=== PATIENT | male | born 1955 | race Caucasian/White ===

== ENCOUNTER 2020-11-20 08:39 | Inpatient (IN) | payer OTHER, SELFPAY ==
[2020-11-20] VITALS (14 sets, daily range): BP systolic 70–158; BP diastolic 40–75; PULSE 56–868; RESP 16–22; TEMP 38.8–40.3; O2SAT 93–99; BMI 33.2
--- NOTE | ~2020-11-20 | CT_ITS ---
EXAMINATION: CT HEAD WITHOUT CONTRAST CLINICAL INFORMATION: Fall. Head trauma. COMPARISON: None TECHNIQUE: Contiguous axial imaging was performed from the skull base to vertex without intravenous administration of contrast. This CT examination was performed using dose optimization techniques as appropriate, variously including the following: *Automated exposure control *Adjustment of mA and/or kV according to patient size (this includes techniques or standardized protocols for targeted exams where dose is matched to indication/reason for exam; i.e. extremities or head) *Use of iterative reconstruction technique DLP: 851 mGy-cm FINDINGS: There is no evidence of acute intracranial hemorrhage or territorial infarction. No abnormal mass effect or midline shift is seen. Torres to white matter differentiation is well preserved. No extra-axial fluid collections are identified. The ventricles are normal in size. There is no abnormal attenuation within the brain parenchyma. The osseous structures and soft tissues are normal. The mastoid air cells and visualized portions of the paranasal sinuses are well aerated. CT/CT head/brain wo con IMPRESSION: Unremarkable exam.
--- NOTE | ~2020-11-20 | XR_ITS ---
EXAMINATION: XR CHEST CLINICAL INFORMATION: Central line placement COMPARISON: CTA chest earlier the same day TECHNIQUE: Frontal view of the chest was obtained. FINDINGS: Low lung volumes. Mild atelectasis particularly at the left lung base. No pleural effusion or pneumothorax. New right internal jugular approach central venous catheter with tip near the cavoatrial junction. Normal heart size. Regional skeleton intact. XR/XR chest 1V IMPRESSION: New right internal jugular approach central venous catheter with tip near the cavoatrial junction. No pneumothorax.
--- NOTE | ~2020-11-20 | CT_ITS ---
EXAMINATION: CT ANGIO CHEST PE PROTOCOL, CT ABDOMEN PELVIS W CON CLINICAL INFORMATION: Shortness of breath, fever, wheezing. Abdominal pain TECHNIQUE: Prior to contrast administration, noncontrast localization images were obtained. Subsequently, multidetector volumetric imaging was performed from the thoracic inlet to the pubic symphysis, through the chest, abdomen, and pelvis following the administration of 80 mL Omnipaque 350 intravenous contrast. No contrast reaction reported Sagittal, coronal, and MIP oblique sagittal reformatted images were obtained on the CT workstation, uploaded to PACS, and reviewed. Total exam dose-length product 654 mGy-cm FINDINGS: QUALITY OF STUDY/CONTRAST BOLUS: Satisfactory. PULMONARY ARTERIES: No central or segmental pulmonary emboli. THORACIC AORTA: No aneurysm or dissection. LUNG: Clustered nodular opacities are seen laterally in the right upper lobe image 190/499. The appearance suggests an infectious or inflammatory process. Patchy atelectasis is seen elsewhere. There is bilateral bronchial wall thickening. Mild dependent lower lobe atelectasis. PLEURA: No pleural effusion or pneumothorax. MEDIASTINUM: Normal heart size. No pericardial effusion. No hilar or mediastinal lymphadenopathy. No evidence of septal bowing or right heart strain. CHEST WALL/AXILLA: No axillary or internal mammary lymphadenopathy. OSSEOUS STRUCTURES: No acute or suspicious osseous abnormality. LIVER, GALLBLADDER, AND BILIARY TREE: The liver is normal in size, shape, and attenuation. No focal hepatic lesion or biliary ductal dilatation is present. There is layering density in the gallbladder likely tiny stones or sludge. No biliary ductal dilatation. PANCREAS: Normal; no mass or surrounding fluid. SPLEEN: Normal size. No focal lesion. ADRENAL GLANDS: Normal; no mass. KIDNEYS AND URETERS: There is subtle hypoenhancement of the posterior aspect of the left kidney. Although this could be artifactual because the patient is not well centered in the CT scanner, pyelonephritis is possible. No hydronephrosis. GASTROINTESTINAL TRACT: Stomach and small bowel non-dilated. No colonic wall thickening or pericolonic inflammatory changes. Normal appendix. ABDOMINAL WALL: Midline laparotomy changes. There is a small amount of fat in both inguinal canals, left greater than right.. LYMPHOVASCULAR STRUCTURES: No lymphadenopathy. The aorta is unremarkable. BLADDER: The bladder is significantly distended. No calculi or focal wall thickening. PELVIC VISCERA: The prostate and seminal vesicles are normal. OSSEOUS STRUCTURES: No acute or suspicious osseous abnormality. CT/CT angio chest PE protocol IMPRESSION: No pulmonary embolus seen. There is bronchial wall thickening with clustered nodules in the lateral periphery of the right upper lobe suggesting underlying infectious or inflammatory process. No dense focal consolidation. This is not the typical appearance of viral COVID pneumonitis. There is asymmetric hypoenhancement of the posterior aspect of the left kidney. Although this could be artifactual due to patient positioning, pyelonephritis is possible. Consider correlation with urinalysis.
--- NOTE | ~2020-11-20 | XR_ITS ---
EXAMINATION: XR CHEST CLINICAL INFORMATION: Shortness of breath COMPARISON: Previous chest x-ray most recent September 2017 TECHNIQUE: Frontal view of the chest was obtained. FINDINGS: The cardiac and mediastinal contours are normal. The lungs are clear. There is no pleural effusion or pneumothorax. There are degenerative changes of the spine. XR/XR chest 1V IMPRESSION: No evidence for acute disease in the chest.
--- NOTE | 2020-11-20 08:50 | ECG_ITS ---
Test Reason : HIGH TEMP Blood Pressure : / mmHG Vent. Rate : 074 BPM Atrial Rate : 074 BPM P-R Int : 202 ms QRS Dur : 112 ms QT Int : 420 ms P-R-T Axes : 050 000 119 degrees QTc Int : 466 ms Normal sinus rhythm ST & T wave abnormality, consider lateral ischemia Abnormal ECG When compared with ECG of 20-AUG-2016 10:38, No significant change was found Referred By: Brianna Akbar Electronically Signed By:MONTSERRAT KIRKPATRICK MD
--- NOTE | 2020-11-20 09:16 | MHC.EDSEPSIS ---
HPI - Sepsis General Chief Complaint: Fever <MARCOS Cerda Last Filed: 11/20/20 16:47> Stated Complaint: DIFF BREATHING (94%RA),FEVER (102) <MARCOS Cerda Last Filed: 11/20/20 16:47> Time Seen by Provider: 11/20/20 08:49 <MARCOS Cerda Last Filed: 11/20/20 16:47> Source: patient and EMS <MARCOS Cerda Last Filed: 11/20/20 16:47> Mode of arrival: EMS <MARCOS Cerda Last Filed: 11/20/20 16:47> Limitations: language barrier <MARCOS Cerda Last Filed: 11/20/20 16:47> History of Present Illness HPI Narrative: 65 y/o male with history of HTN, HLD, DM, lung problems who presents to the ED with complaints of fever, shortness of breath and cough. He reports being seen by his PCP 3 days ago - had a negative COVID test and was started on steroids and ?antibiotics. No CXR was performed. He reports last night he started coughing. He reports when he went to get up out of bed this morning and rolled out of bed onto the floor. He reports dizziness at that time. He hit head head but did not lose consciousness. Denies being on blood thinners. Denies headache or neck pain. He reports generalized abdominal pain since the fall. No nausea, vomiting, or diarrhea. He reportedly had a fever of 102 at home and family gave him medicine. He arrives to the ED with oral temp of 98.4 but felt very warm; rectal temp was checked and he was febrile to 104.5. No tachycardia. <MARCOS Cerda Last Filed: 11/20/20 16:47> MD elicited complaint: fever, weakness and other (cough, SOB) <MARCOS Cerda Last Filed: 11/20/20 16:47> Pertinent past history: diabetes <MARCOS Cerda Last Filed: 11/20/20 16:47> Onset (ago): day(s) (3) <MARCOS Cerda Last Filed: 11/20/20 16:47> Measured temperature: 104.5 F <MARCOS Cerda Last Filed: 11/20/20 16:47> Exacerbating factors: nothing <MARCOS Cerda Last Filed: 11/20/20 16:47> Relieving factors: nothing <MARCOS Cerda Last Filed: 11/20/20 16:47> Associated symptoms: denies other symptoms, cough, shortness of breath and abdominal pain <MARCOS Cerda Last Filed: 11/20/20 16:47> Treatments prior to arrival fever: none <MARCOS Cerda Last Filed: 11/20/20 16:47> Related Data Home Medications: Home Medications Medication Instructions Recorded Confirmed albuterol sulfate 2.5 mg INHALATION Q4H PRN 11/20/20 11/20/20 aspirin 81 mg PO DAILY 11/20/20 11/20/20 atorvastatin 80 mg PO DAILY 11/20/20 11/20/20 gabapentin 800 mg PO TID 11/20/20 11/20/20 hydrochlorothiazide 25 mg PO DAILY 11/20/20 11/20/20 insulin glargine [Lantus U-100 60 unit SUBCUT BEDTIME 11/20/20 11/20/20 Insulin] losartan 100 mg PO DAILY 11/20/20 11/20/20 prednisone See Rx Instructions .ROUTE .COMPLEX 11/20/20 11/20/20 tamsulosin 0.4 mg PO DAILY 11/20/20 11/20/20 <MARCOS Cerda Last Filed: 11/20/20 16:47> Allergies/Adverse Reactions: Allergies Allergy/AdvReac Type Severity Reaction Status Date / Time No Known Allergies Allergy Mild NONE Unverified 06/15/20 14:38 <MARCOS Cerda Last Filed: 11/20/20 16:47> Review of Systems Review of Systems Constitutional: + Fever, No Chills ENT/Mouth: No sore throat, No Rhinorrhea, No Swallowing Difficulty Eyes: No Eye Pain, No Swelling, No Redness Cardiovascular: No Chest Pain, + SOB, No Orthopnea, No Edema Respiratory: + Cough, No Sputum, + Wheezing, + dyspnea Gastrointestinal: No Nausea, No Vomiting, No Diarrhea, + abdominal Pain, No Hematochezia, No Melena Genitourinary: No Dysuria, No Urinary Frequency, No Hematuria Musculoskeletal: No joint pain, No Myalgias Skin: No Skin Lesions, No rash Neuro: + Weakness, No Numbness, + Dizziness, No Headache Psych: No Anxiety/Panic, No Depression Heme/Lymph: No Bruising, No Lymphadenopathy Endocrine: No Polyuria, No Polydipsia <MARCOS Cerda - Last Filed: 11/20/20 16:47> Physical Exam Vital Signs: Last Vital Signs Temp 98.5 F 11/21/20 08:00 Pulse 65 11/21/20 08:00 Resp 20 11/21/20 08:00 BP 152/75 H 11/21/20 08:00 Pulse Ox 98 11/21/20 08:00 Body Mass Index 33.2 Appearance: Alert. Oriented X3. No acute distress. Eyes: Pupils equal, round and reactive to light. ENT: Pharynx normal. Neck: Normal inspection. Neck supple. +jvd CVS: Normal heart rate and rhythm. Pulses normal. Respiratory: No respiratory distress. Breath sounds with very faint end-expiratry wheeze in RUL & diminished at the bases. Abdomen: Soft with well healed longitudinal scar on right side of abdomen and linear above umbilicus, non-tender throughout. +BS x4 Skin: Skin very warm and dry. Normal skin color. Normal skin turgor. No rashes. Extremities: No lower extremity edema. Neuro: Oriented X 3, poor historian. Mild generalized weakness noted, non-focal. <MARCOS Cerda - Last Filed: 11/20/20 16:47> Last Vital Signs Temp 98.5 F 11/21/20 08:00 Pulse 65 11/21/20 08:00 Resp 20 11/21/20 08:00 BP 152/75 H 11/21/20 08:00 Pulse Ox 98 11/21/20 08:00 Body Mass Index 33.2 <Aly Ferguson MD - Last Filed: 11/21/20 10:15> Course Course Course Narrative: 65 y/o male presenting with fever, SOB, cough, dizziness, abdominal pain, s/p fall out of bed this morning. 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 No wheezing on arrival, no respiratory distress and SpO2 95% on RA. He is febrile to 104.5 rectally and hemodynamically stable. History is very limited. Given his diffuse and vague complaints and history of DM will broadly cover with vanco/zosyn, give 2L IVF. He does have JVD on exam and reports SOB so will be cautious with IVF. He has no peripheral edema. BNP ordered as well. Panculture ordered. Mental status is at baseline per family and he denies headache and neck pain. No need for LP at this time. d/w Dr. Ferguson. <MARCOS Cerda - Last Filed: 11/20/20 16:47> I have discussed the case and management with the KALEN, patient with septic like symptoms with no source. covered with zosyn and Vanco and is admitted <Aly Ferguson MD - Last Filed: 11/21/20 10:15> Reevaluation(s) Reevaluation #1: CXR without obvious infiltrate. WBC 14.8 with low lymphcytes, concern for COVID-19 which is pending. Temp remains >104 after Tylenol and 2L IVF. 3rd liter IVF ordered as well as Toradol. Plan for cooling blanket if no effect. Will get CT chest/abd/pelvis for further evaluation of source of fever. <MARCOS Cerda - Last Filed: 11/20/20 16:47> Reevaluation #2: 14:30pm - newly hypotensive with BP 70's systolic, 4th liter ordered. Consent obtained for central line placement. CT scan showed bronchial wall thickening with clustered nodules in the lateral periphery of the right upper lobe suggesting underlying infectious or inflammatory process also evidence of possible pyelonephritis, UA still pending. Focused sepsis exam completed after 3L IVF was given. <MARCOS Cerda - Last Filed: 11/20/20 16:47> Reevaluation #3: 16:00 - patient's BP is now stabilized with BP 90/50s and MAP >65 after 4L IVF. UA is negative for infection, doubt pyelo. 16:25: BP now 120/59 but continues to be febrile to 102.9. Due to repeat dose of Tylenol. He is now wheezy after 4L IVF. His recent CXR did not show pulmonary edema. BNP is normal. Doubt fluid related. He was wheezy for EMS with significant improvement after nebs x2, will give albuterol neb and reassess. Patient can likely be admitted to [facility]. TT sent to [facility] at 4:30pm. Spoke with [facility] who will admit. <MARCOS Cerda - Last Filed: 11/20/20 16:47> Procedures Central Line Placement Right IJ: Time Out Performed: Yes <MARCOS Cerda - Last Filed: 11/20/20 16:47> Patient Placed on Monitor/Pulse Ox: Yes <MARCOS Cerda - Last Filed: 11/20/20 16:47> MD Prep: mask, gown and gloves <MARCOS Cerda - Last Filed: 11/20/20 16:47> Central Line Prep: Chlorhexidine scrub and sterile drapes applied <MARCOS Cerda - Last Filed: 11/20/20 16:47> Local Anesthetic: lidocaine 1% <MARCOS Cerda - Last Filed: 11/20/20 16:47> Amount of anesthesia used (mL): 4 <MARCOS Cerda - Last Filed: 11/20/20 16:47> Ultrasound Used for Placement: Yes <MARCOS Cerda - Last Filed: 11/20/20 16:47> Central Line Lumen Inserted: triple <MARCOS Cerda - Last Filed: 11/20/20 16:47> Post Procedure: sutured in place, good blood return, all ports aspirated, flushed, capped and sterile dressing applied <MARCOS Cerda - Last Filed: 11/20/20 16:47> Post Procedure X-Ray: tip of catheter in good position and no pneumothorax seen <MARCOS Cerda - Last Filed: 11/20/20 16:47> Patient Tolerated Procedure: well <MARCOS Cerda - Last Filed: 11/20/20 16:47> Complications: none <MARCOS Cerda - Last Filed: 11/20/20 16:47> MDM - Fever Lab Data Attestation: I reviewed the patient's lab results. <MARCOS Cerda - Last Filed: 11/20/20 16:47> Result diagrams: : 11/21/20 06:33 11/21/20 06:33 <MARCOS Cerda - Last Filed: 11/20/20 16:47> Labs: Lab Results 11/20/20 11/20/20 11/20/20 Range/Units 10:08 10:08 10:08 WBC (4.8-10.8) X10*3/uL RBC (4.60-5.80) X10*6/uL Hgb (14.0-18.0) g/dl Hct (42-52) % MCV (80-98) fL MCH (27.0-33.0) pg MCHC (31.0-36.0) g/dl RDW (11.0-16.0) % Plt Count (160-400) X10*3/uL MPV (9.4-12.4) fL Immature Gran % (Auto) (0.0-0.4) % Neut % (Auto) (45-73) % Lymph % (Auto) (20-40) % [place] % (Auto) (2-11) % Eos % (Auto) (0-4) % Baso % (Auto) (0-2) % Lymph # (Auto) (1.2-4.9) X10*3/uL [place] # (Auto) (0.1-1.2) X10*3/uL Eos # (Auto) (0.0-0.4) X10*3/uL Baso # (Auto) (0.0-0.2) X10*3/uL Abs Immat Gran (auto) (0.00-0.03) X10*3/uL Absolute Neuts (auto) (2.0-8.3) X10*3/uL Absolute Nucleated RBC (0.0-0.012) X10*3/uL Nucleated RBC % (auto) (0.0-0.2) /100WBC Hold Blue Top Sodium Cancelled Potassium Cancelled Chloride Cancelled Carbon Dioxide Cancelled Anion Gap Cancelled BUN Cancelled Creatinine Cancelled Estim Creat Clear Calc Cancelled Estimated GFR Cancelled POC Glucose (60-115) mg/dL Random Glucose Cancelled Lactic Acid (0.5-2.0) mmol/L Lactic Acid Fup @ 2Hr (0.5-2.0) mmol/L Calcium Cancelled Magnesium Cancelled Total Bilirubin Cancelled Direct Bilirubin Cancelled AST Cancelled ALT Cancelled Alkaline Phosphatase Cancelled Total Creatine Kinase (38-174) U/L Troponin I High Sens (<3.5-35.0) ng/L C-Reactive Protein Cancelled B-Natriuretic Peptide (<100) pg/mL Total Protein Cancelled Albumin Cancelled Procalcitonin 0.24 ng/mL Urine Color Urine Appearance Urine pH (5.0-8.0) Ur Specific [place] (1.005-1.025) Urine Protein (NEG-TRACE) MG/DL Urine Glucose (UA) (NEG) MG/DL Urine Ketones (NEG) MG/DL Urine Blood (NEG) Urine Nitrite (NEG) Ur Leukocyte Esterase (NEG) Urine RBC (0) /HPF Urine WBC (0-4) /HPF Ur Squamous Epith Cells /LPF Urine Bacteria /LPF Respiratory Panel [place] Adenovirus (Rapid PCR) (Not Detect.) B.pert (TEM-PCR) (Not Detect.) B.parapertussis DNA PCR (Not Detect.) C. pneumoniae DNA (PCR) (Not Detect.) Coronavirus (PCR) NEGATIVE (Negative) Coronavirus OC43 (PCR) (Not Detect.) Coronavirus HKU1 (PCR) (Not Detect.) Coronavirus 229E (PCR) (Not Detect.) Coronavirus NL63 (PCR) (Not Detect.) Human Metapneumovir PCR (Not Detect.) Influenza A (RT-PCR) (Not Detect.) Influenza Type A (PCR) NEGATIVE (Negative) Influenza B (RT-PCR) (Not Detect.) Influenza Type B (PCR) NEGATIVE (Negative) M. pneumoniae (PCR) (Not Detect.) Parainfluenza 1 (PCR) (Not Detect.) Parainfluenza 2 (PCR) (Not Detect.) Parainfluenza 3 (PCR) (Not Detect.) Parainfluenza 4 (PCR) (Not Detect.) RSV (PCR) (Not Detect.) RSV RNA Qual (PCR) NEGATIVE (Negative) Entero/Rhino (PCR) (Not Detect.) SARS-CoV-2 RNA (RT-PCR) (Not Detect.) 11/20/20 11/20/20 11/20/20 Range/Units 10:08 10:09 10:09 WBC 14.8 H (4.8-10.8) X10*3/uL RBC 5.08 (4.60-5.80) X10*6/uL Hgb 15.1 (14.0-18.0) g/dl Hct 43.9 (42-52) % MCV 86.4 (80-98) fL MCH 29.7 (27.0-33.0) pg MCHC 34.4 (31.0-36.0) g/dl RDW 12.5 (11.0-16.0) % Plt Count 180 (160-400) X10*3/uL MPV 9.8 (9.4-12.4) fL Immature Gran % (Auto) 0.8 H (0.0-0.4) % Neut % (Auto) 86.5 H (45-73) % Lymph % (Auto) 5.3 L (20-40) % [place] % (Auto) 7.3 (2-11) % Eos % (Auto) 0.0 (0-4) % Baso % (Auto) 0.1 (0-2) % Lymph # (Auto) 0.8 L (1.2-4.9) X10*3/uL [place] # (Auto) 1.1 (0.1-1.2) X10*3/uL Eos # (Auto) 0.0 (0.0-0.4) X10*3/uL Baso # (Auto) 0.0 (0.0-0.2) X10*3/uL Abs Immat Gran (auto) 0.12 H (0.00-0.03) X10*3/uL Absolute Neuts (auto) 12.8 H (2.0-8.3) X10*3/uL Absolute Nucleated RBC 0.000 (0.0-0.012) X10*3/uL Nucleated RBC % (auto) 0.0 (0.0-0.2) /100WBC Hold Blue Top Sodium 136 Potassium 3.1 L Chloride 94 L Carbon Dioxide 28 Anion Gap 17 BUN 25 H Creatinine 1.12 Estim Creat Clear Calc 77.0 Estimated GFR > 60 POC Glucose (60-115) mg/dL Random Glucose 179 H Lactic Acid (0.5-2.0) mmol/L Lactic Acid Fup @ 2Hr (0.5-2.0) mmol/L Calcium 8.8 Magnesium 1.7 Total Bilirubin 1.2 H Direct Bilirubin 0.5 AST 29 ALT 26 Alkaline Phosphatase 131 H Total Creatine Kinase 515 H (38-174) U/L Troponin I High Sens (<3.5-35.0) ng/L C-Reactive Protein 3.09 H B-Natriuretic Peptide (<100) pg/mL Total Protein 7.1 Albumin 4.3 Procalcitonin ng/mL Urine Color Urine Appearance Urine pH (5.0-8.0) Ur Specific [place] (1.005-1.025) Urine Protein (NEG-TRACE) MG/DL Urine Glucose (UA) (NEG) MG/DL Urine Ketones (NEG) MG/DL Urine Blood (NEG) Urine Nitrite (NEG) Ur Leukocyte Esterase (NEG) Urine RBC (0) /HPF Urine WBC (0-4) /HPF Ur Squamous Epith Cells /LPF Urine Bacteria /LPF Respiratory Panel [place] See Note Adenovirus (Rapid PCR) Not Detected (Not Detect.) B.pert (TEM-PCR) Not Detected (Not Detect.) B.parapertussis DNA PCR Not Detected (Not Detect.) C. pneumoniae DNA (PCR) Not Detected (Not Detect.) Coronavirus (PCR) (Negative) Coronavirus OC43 (PCR) Not Detected (Not Detect.) Coronavirus HKU1 (PCR) Not Detected (Not Detect.) Coronavirus 229E (PCR) Not Detected (Not Detect.) Coronavirus NL63 (PCR) Not Detected (Not Detect.) Human Metapneumovir PCR Not Detected (Not Detect.) Influenza A (RT-PCR) Not Detected (Not Detect.) Influenza Type A (PCR) (Negative) Influenza B (RT-PCR) Not Detected (Not Detect.) Influenza Type B (PCR) (Negative) M. pneumoniae (PCR) Not Detected (Not Detect.) Parainfluenza 1 (PCR) Not Detected (Not Detect.) Parainfluenza 2 (PCR) Not Detected (Not Detect.) Parainfluenza 3 (PCR) Not Detected (Not Detect.) Parainfluenza 4 (PCR) Not Detected (Not Detect.) RSV (PCR) Not Detected (Not Detect.) RSV RNA Qual (PCR) (Negative) Entero/Rhino (PCR) Not Detected (Not Detect.) SARS-CoV-2 RNA (RT-PCR) Not Detected (Not Detect.) 11/20/20 11/20/20 11/20/20 Range/Units 10:09 10:09 10:09 WBC (4.8-10.8) X10*3/uL RBC (4.60-5.80) X10*6/uL Hgb (14.0-18.0) g/dl Hct (42-52) % MCV (80-98) fL MCH (27.0-33.0) pg MCHC (31.0-36.0) g/dl RDW (11.0-16.0) % Plt Count (160-400) X10*3/uL MPV (9.4-12.4) fL Immature Gran % (Auto) (0.0-0.4) % Neut % (Auto) (45-73) % Lymph % (Auto) (20-40) % [place] % (Auto) (2-11) % Eos % (Auto) (0-4) % Baso % (Auto) (0-2) % Lymph # (Auto) (1.2-4.9) X10*3/uL [place] # (Auto) (0.1-1.2) X10*3/uL Eos # (Auto) (0.0-0.4) X10*3/uL Baso # (Auto) (0.0-0.2) X10*3/uL Abs Immat Gran (auto) (0.00-0.03) X10*3/uL Absolute Neuts (auto) (2.0-8.3) X10*3/uL Absolute Nucleated RBC (0.0-0.012) X10*3/uL Nucleated RBC % (auto) (0.0-0.2) /100WBC Hold Blue Top SEE NOTE Sodium Potassium Chloride Carbon Dioxide Anion Gap BUN Creatinine Estim Creat Clear Calc Estimated GFR POC Glucose (60-115) mg/dL Random Glucose Lactic Acid 3.2 H* (0.5-2.0) mmol/L Lactic Acid Fup @ 2Hr (0.5-2.0) mmol/L Calcium Magnesium Total Bilirubin Direct Bilirubin AST ALT Alkaline Phosphatase Total Creatine Kinase (38-174) U/L Troponin I High Sens 79.6 H (<3.5-35.0) ng/L C-Reactive Protein B-Natriuretic Peptide 95 (<100) pg/mL Total Protein Albumin Procalcitonin ng/mL Urine Color Urine Appearance Urine pH (5.0-8.0) Ur Specific [place] (1.005-1.025) Urine Protein (NEG-TRACE) MG/DL Urine Glucose (UA) (NEG) MG/DL Urine Ketones (NEG) MG/DL Urine Blood (NEG) Urine Nitrite (NEG) Ur Leukocyte Esterase (NEG) Urine RBC (0) /HPF Urine WBC (0-4) /HPF Ur Squamous Epith Cells /LPF Urine Bacteria /LPF Respiratory Panel [place] Adenovirus (Rapid PCR) (Not Detect.) B.pert (TEM-PCR) (Not Detect.) B.parapertussis DNA PCR (Not Detect.) C. pneumoniae DNA (PCR) (Not Detect.) Coronavirus (PCR) (Negative) Coronavirus OC43 (PCR) (Not Detect.) Coronavirus HKU1 (PCR) (Not Detect.) Coronavirus 229E (PCR) (Not Detect.) Coronavirus NL63 (PCR) (Not Detect.) Human Metapneumovir PCR (Not Detect.) Influenza A (RT-PCR) (Not Detect.) Influenza Type A (PCR) (Negative) Influenza B (RT-PCR) (Not Detect.) Influenza Type B (PCR) (Negative) M. pneumoniae (PCR) (Not Detect.) Parainfluenza 1 (PCR) (Not Detect.) Parainfluenza 2 (PCR) (Not Detect.) Parainfluenza 3 (PCR) (Not Detect.) Parainfluenza 4 (PCR) (Not Detect.) RSV (PCR) (Not Detect.) RSV RNA Qual (PCR) (Negative) Entero/Rhino (PCR) (Not Detect.) SARS-CoV-2 RNA (RT-PCR) (Not Detect.) 11/20/20 11/20/20 11/20/20 Range/Units 13:19 13:19 14:32 WBC (4.8-10.8) X10*3/uL RBC (4.60-5.80) X10*6/uL Hgb (14.0-18.0) g/dl Hct (42-52) % MCV (80-98) fL MCH (27.0-33.0) pg MCHC (31.0-36.0) g/dl RDW (11.0-16.0) % Plt Count (160-400) X10*3/uL MPV (9.4-12.4) fL Immature Gran % (Auto) (0.0-0.4) % Neut % (Auto) (45-73) % Lymph % (Auto) (20-40) % [place] % (Auto) (2-11) % Eos % (Auto) (0-4) % Baso % (Auto) (0-2) % Lymph # (Auto) (1.2-4.9) X10*3/uL [place] # (Auto) (0.1-1.2) X10*3/uL Eos # (Auto) (0.0-0.4) X10*3/uL Baso # (Auto) (0.0-0.2) X10*3/uL Abs Immat Gran (auto) (0.00-0.03) X10*3/uL Absolute Neuts (auto) (2.0-8.3) X10*3/uL Absolute Nucleated RBC (0.0-0.012) X10*3/uL Nucleated RBC % (auto) (0.0-0.2) /100WBC Hold Blue Top Sodium Potassium Chloride Carbon Dioxide Anion Gap BUN Creatinine Estim Creat Clear Calc Estimated GFR POC Glucose (60-115) mg/dL Random Glucose Lactic Acid (0.5-2.0) mmol/L Lactic Acid Fup @ 2Hr 1.8 (0.5-2.0) mmol/L Calcium Magnesium Total Bilirubin Direct Bilirubin AST ALT Alkaline Phosphatase Total Creatine Kinase (38-174) U/L Troponin I High Sens 79.8 H (<3.5-35.0) ng/L C-Reactive Protein B-Natriuretic Peptide (<100) pg/mL Total Protein Albumin Procalcitonin ng/mL Urine Color YELLOW Urine Appearance CLEAR Urine pH 5.5 (5.0-8.0) Ur Specific [place] 1.020 (1.005-1.025) Urine Protein NEG (NEG-TRACE) MG/DL Urine Glucose (UA) 500 H (NEG) MG/DL Urine Ketones NEG (NEG) MG/DL Urine Blood TRACE (NEG) Urine Nitrite NEG (NEG) Ur Leukocyte Esterase NEG (NEG) Urine RBC 0-2 (0) /HPF Urine WBC 0 (0-4) /HPF Ur Squamous Epith Cells NONE /LPF Urine Bacteria NONE /LPF Respiratory Panel [place] Adenovirus (Rapid PCR) (Not Detect.) B.pert (TEM-PCR) (Not Detect.) B.parapertussis DNA PCR (Not Detect.) C. pneumoniae DNA (PCR) (Not Detect.) Coronavirus (PCR) (Negative) Coronavirus OC43 (PCR) (Not Detect.) Coronavirus HKU1 (PCR) (Not Detect.) Coronavirus 229E (PCR) (Not Detect.) Coronavirus NL63 (PCR) (Not Detect.) Human Metapneumovir PCR (Not Detect.) Influenza A (RT-PCR) (Not Detect.) Influenza Type A (PCR) (Negative) Influenza B (RT-PCR) (Not Detect.) Influenza Type B (PCR) (Negative) M. pneumoniae (PCR) (Not Detect.) Parainfluenza 1 (PCR) (Not Detect.) Parainfluenza 2 (PCR) (Not Detect.) Parainfluenza 3 (PCR) (Not Detect.) Parainfluenza 4 (PCR) (Not Detect.) RSV (PCR) (Not Detect.) RSV RNA Qual (PCR) (Negative) Entero/Rhino (PCR) (Not Detect.) SARS-CoV-2 RNA (RT-PCR) (Not Detect.) 11/20/20 11/20/20 Range/Units 15:12 21:11 WBC (4.8-10.8) X10*3/uL RBC (4.60-5.80) X10*6/uL Hgb (14.0-18.0) g/dl Hct (42-52) % MCV (80-98) fL MCH (27.0-33.0) pg MCHC (31.0-36.0) g/dl RDW (11.0-16.0) % Plt Count (160-400) X10*3/uL MPV (9.4-12.4) fL Immature Gran % (Auto) (0.0-0.4) % Neut % (Auto) (45-73) % Lymph % (Auto) (20-40) % [place] % (Auto) (2-11) % Eos % (Auto) (0-4) % Baso % (Auto) (0-2) % Lymph # (Auto) (1.2-4.9) X10*3/uL [place] # (Auto) (0.1-1.2) X10*3/uL Eos # (Auto) (0.0-0.4) X10*3/uL Baso # (Auto) (0.0-0.2) X10*3/uL Abs Immat Gran (auto) (0.00-0.03) X10*3/uL Absolute Neuts (auto) (2.0-8.3) X10*3/uL Absolute Nucleated RBC (0.0-0.012) X10*3/uL Nucleated RBC % (auto) (0.0-0.2) /100WBC Hold Blue Top Sodium Potassium Chloride Carbon Dioxide Anion Gap BUN Creatinine Estim Creat Clear Calc Estimated GFR POC Glucose 97 158 H (60-115) mg/dL Random Glucose Lactic Acid (0.5-2.0) mmol/L Lactic Acid Fup @ 2Hr (0.5-2.0) mmol/L Calcium Magnesium Total Bilirubin Direct Bilirubin AST ALT Alkaline Phosphatase Total Creatine Kinase (38-174) U/L Troponin I High Sens (<3.5-35.0) ng/L C-Reactive Protein B-Natriuretic Peptide (<100) pg/mL Total Protein Albumin Procalcitonin ng/mL Urine Color Urine Appearance Urine pH (5.0-8.0) Ur Specific [place] (1.005-1.025) Urine Protein (NEG-TRACE) MG/DL Urine Glucose (UA) (NEG) MG/DL Urine Ketones (NEG) MG/DL Urine Blood (NEG) Urine Nitrite (NEG) Ur Leukocyte Esterase (NEG) Urine RBC (0) /HPF Urine WBC (0-4) /HPF Ur Squamous Epith Cells /LPF Urine Bacteria /LPF Respiratory Panel [place] Adenovirus (Rapid PCR) (Not Detect.) B.pert (TEM-PCR) (Not Detect.) B.parapertussis DNA PCR (Not Detect.) C. pneumoniae DNA (PCR) (Not Detect.) Coronavirus (PCR) (Negative) Coronavirus OC43 (PCR) (Not Detect.) Coronavirus HKU1 (PCR) (Not Detect.) Coronavirus 229E (PCR) (Not Detect.) Coronavirus NL63 (PCR) (Not Detect.) Human Metapneumovir PCR (Not Detect.) Influenza A (RT-PCR) (Not Detect.) Influenza Type A (PCR) (Negative) Influenza B (RT-PCR) (Not Detect.) Influenza Type B (PCR) (Negative) M. pneumoniae (PCR) (Not Detect.) Parainfluenza 1 (PCR) (Not Detect.) Parainfluenza 2 (PCR) (Not Detect.) Parainfluenza 3 (PCR) (Not Detect.) Parainfluenza 4 (PCR) (Not Detect.) RSV (PCR) (Not Detect.) RSV RNA Qual (PCR) (Negative) Entero/Rhino (PCR) (Not Detect.) SARS-CoV-2 RNA (RT-PCR) (Not Detect.) <MARCOS Cerda - Last Filed: 11/20/20 16:47> Lab Results 11/20/20 11/20/20 11/20/20 Range/Units 10:08 10:08 10:08 WBC (4.8-10.8) X10*3/uL RBC (4.60-5.80) X10*6/uL Hgb (14.0-18.0) g/dl Hct (42-52) % MCV (80-98) fL MCH (27.0-33.0) pg MCHC (31.0-36.0) g/dl RDW (11.0-16.0) % Plt Count (160-400) X10*3/uL MPV (9.4-12.4) fL Immature Gran % (Auto) (0.0-0.4) % Neut % (Auto) (45-73) % Lymph % (Auto) (20-40) % [place] % (Auto) (2-11) % Eos % (Auto) (0-4) % Baso % (Auto) (0-2) % Lymph # (Auto) (1.2-4.9) X10*3/uL [place] # (Auto) (0.1-1.2) X10*3/uL Eos # (Auto) (0.0-0.4) X10*3/uL Baso # (Auto) (0.0-0.2) X10*3/uL Abs Immat Gran (auto) (0.00-0.03) X10*3/uL Absolute Neuts (auto) (2.0-8.3) X10*3/uL Absolute Nucleated RBC (0.0-0.012) X10*3/uL Nucleated RBC % (auto) (0.0-0.2) /100WBC Hold Blue Top Sodium Cancelled Potassium Cancelled Chloride Cancelled Carbon Dioxide Cancelled Anion Gap Cancelled BUN Cancelled Creatinine Cancelled Estim Creat Clear Calc Cancelled Estimated GFR Cancelled POC Glucose (60-115) mg/dL Random Glucose Cancelled Lactic Acid (0.5-2.0) mmol/L Lactic Acid Fup @ 2Hr (0.5-2.0) mmol/L Calcium Cancelled Magnesium Cancelled Total Bilirubin Cancelled Direct Bilirubin Cancelled AST Cancelled ALT Cancelled Alkaline Phosphatase Cancelled Total Creatine Kinase (38-174) U/L Troponin I High Sens (<3.5-35.0) ng/L C-Reactive Protein Cancelled B-Natriuretic Peptide (<100) pg/mL Total Protein Cancelled Albumin Cancelled Procalcitonin 0.24 ng/mL Urine Color Urine Appearance Urine pH (5.0-8.0) Ur Specific [place] (1.005-1.025) Urine Protein (NEG-TRACE) MG/DL Urine Glucose (UA) (NEG) MG/DL Urine Ketones (NEG) MG/DL Urine Blood (NEG) Urine Nitrite (NEG) Ur Leukocyte Esterase (NEG) Urine RBC (0) /HPF Urine WBC (0-4) /HPF Ur Squamous Epith Cells /LPF Urine Bacteria /LPF Respiratory Panel [place] Adenovirus (Rapid PCR) (Not Detect.) B.pert (TEM-PCR) (Not Detect.) B.parapertussis DNA PCR (Not Detect.) C. pneumoniae DNA (PCR) (Not Detect.) Coronavirus (PCR) NEGATIVE (Negative) Coronavirus OC43 (PCR) (Not Detect.) Coronavirus HKU1 (PCR) (Not Detect.) Coronavirus 229E (PCR) (Not Detect.) Coronavirus NL63 (PCR) (Not Detect.) Human Metapneumovir PCR (Not Detect.) Influenza A (RT-PCR) (Not Detect.) Influenza Type A (PCR) NEGATIVE (Negative) Influenza B (RT-PCR) (Not Detect.) Influenza Type B (PCR) NEGATIVE (Negative) M. pneumoniae (PCR) (Not Detect.) Parainfluenza 1 (PCR) (Not Detect.) Parainfluenza 2 (PCR) (Not Detect.) Parainfluenza 3 (PCR) (Not Detect.) Parainfluenza 4 (PCR) (Not Detect.) RSV (PCR) (Not Detect.) RSV RNA Qual (PCR) NEGATIVE (Negative) Entero/Rhino (PCR) (Not Detect.) SARS-CoV-2 RNA (RT-PCR) (Not Detect.) 11/20/20 11/20/20 11/20/20 Range/Units 10:08 10:09 10:09 WBC 14.8 H (4.8-10.8) X10*3/uL RBC 5.08 (4.60-5.80) X10*6/uL Hgb 15.1 (14.0-18.0) g/dl Hct 43.9 (42-52) % MCV 86.4 (80-98) fL MCH 29.7 (27.0-33.0) pg MCHC 34.4 (31.0-36.0) g/dl RDW 12.5 (11.0-16.0) % Plt Count 180 (160-400) X10*3/uL MPV 9.8 (9.4-12.4) fL Immature Gran % (Auto) 0.8 H (0.0-0.4) % Neut % (Auto) 86.5 H (45-73) % Lymph % (Auto) 5.3 L (20-40) % [place] % (Auto) 7.3 (2-11) % Eos % (Auto) 0.0 (0-4) % Baso % (Auto) 0.1 (0-2) % Lymph # (Auto) 0.8 L (1.2-4.9) X10*3/uL [place] # (Auto) 1.1 (0.1-1.2) X10*3/uL Eos # (Auto) 0.0 (0.0-0.4) X10*3/uL Baso # (Auto) 0.0 (0.0-0.2) X10*3/uL Abs Immat Gran (auto) 0.12 H (0.00-0.03) X10*3/uL Absolute Neuts (auto) 12.8 H (2.0-8.3) X10*3/uL Absolute Nucleated RBC 0.000 (0.0-0.012) X10*3/uL Nucleated RBC % (auto) 0.0 (0.0-0.2) /100WBC Hold Blue Top Sodium 136 Potassium 3.1 L Chloride 94 L Carbon Dioxide 28 Anion Gap 17 BUN 25 H Creatinine 1.12 Estim Creat Clear Calc 77.0 Estimated GFR > 60 POC Glucose (60-115) mg/dL Random Glucose 179 H Lactic Acid (0.5-2.0) mmol/L Lactic Acid Fup @ 2Hr (0.5-2.0) mmol/L Calcium 8.8 Magnesium 1.7 Total Bilirubin 1.2 H Direct Bilirubin 0.5 AST 29 ALT 26 Alkaline Phosphatase 131 H Total Creatine Kinase 515 H (38-174) U/L Troponin I High Sens (<3.5-35.0) ng/L C-Reactive Protein 3.09 H B-Natriuretic Peptide (<100) pg/mL Total Protein 7.1 Albumin 4.3 Procalcitonin ng/mL Urine Color Urine Appearance Urine pH (5.0-8.0) Ur Specific [place] (1.005-1.025) Urine Protein (NEG-TRACE) MG/DL Urine Glucose (UA) (NEG) MG/DL Urine Ketones (NEG) MG/DL Urine Blood (NEG) Urine Nitrite (NEG) Ur Leukocyte Esterase (NEG) Urine RBC (0) /HPF Urine WBC (0-4) /HPF Ur Squamous Epith Cells /LPF Urine Bacteria /LPF Respiratory Panel Peterson See Note Adenovirus (Rapid PCR) Not Detected (Not Detect.) B.pert (TEM-PCR) Not Detected (Not Detect.) B.parapertussis DNA PCR Not Detected (Not Detect.) C. pneumoniae DNA (PCR) Not Detected (Not Detect.) Coronavirus (PCR) (Negative) Coronavirus OC43 (PCR) Not Detected (Not Detect.) Coronavirus HKU1 (PCR) Not Detected (Not Detect.) Coronavirus 229E (PCR) Not Detected (Not Detect.) Coronavirus NL63 (PCR) Not Detected (Not Detect.) Human Metapneumovir PCR Not Detected (Not Detect.) Influenza A (RT-PCR) Not Detected (Not Detect.) Influenza Type A (PCR) (Negative) Influenza B (RT-PCR) Not Detected (Not Detect.) Influenza Type B (PCR) (Negative) M. pneumoniae (PCR) Not Detected (Not Detect.) Parainfluenza 1 (PCR) Not Detected (Not Detect.) Parainfluenza 2 (PCR) Not Detected (Not Detect.) Parainfluenza 3 (PCR) Not Detected (Not Detect.) Parainfluenza 4 (PCR) Not Detected (Not Detect.) RSV (PCR) Not Detected (Not Detect.) RSV RNA Qual (PCR) (Negative) Entero/Rhino (PCR) Not Detected (Not Detect.) SARS-CoV-2 RNA (RT-PCR) Not Detected (Not Detect.) 11/20/20 11/20/20 11/20/20 Range/Units 10:09 10:09 10:09 WBC (4.8-10.8) X10*3/uL RBC (4.60-5.80) X10*6/uL Hgb (14.0-18.0) g/dl Hct (42-52) % MCV (80-98) fL MCH (27.0-33.0) pg MCHC (31.0-36.0) g/dl RDW (11.0-16.0) % Plt Count (160-400) X10*3/uL MPV (9.4-12.4) fL Immature Gran % (Auto) (0.0-0.4) % Neut % (Auto) (45-73) % Lymph % (Auto) (20-40) % [place] % (Auto) (2-11) % Eos % (Auto) (0-4) % Baso % (Auto) (0-2) % Lymph # (Auto) (1.2-4.9) X10*3/uL [place] # (Auto) (0.1-1.2) X10*3/uL Eos # (Auto) (0.0-0.4) X10*3/uL Baso # (Auto) (0.0-0.2) X10*3/uL Abs Immat Gran (auto) (0.00-0.03) X10*3/uL Absolute Neuts (auto) (2.0-8.3) X10*3/uL Absolute Nucleated RBC (0.0-0.012) X10*3/uL Nucleated RBC % (auto) (0.0-0.2) /100WBC Hold Blue Top SEE NOTE Sodium Potassium Chloride Carbon Dioxide Anion Gap BUN Creatinine Estim Creat Clear Calc Estimated GFR POC Glucose (60-115) mg/dL Random Glucose Lactic Acid 3.2 H* (0.5-2.0) mmol/L Lactic Acid Fup @ 2Hr (0.5-2.0) mmol/L Calcium Magnesium Total Bilirubin Direct Bilirubin AST ALT Alkaline Phosphatase Total Creatine Kinase (38-174) U/L Troponin I High Sens 79.6 H (<3.5-35.0) ng/L C-Reactive Protein B-Natriuretic Peptide 95 (<100) pg/mL Total Protein Albumin Procalcitonin ng/mL Urine Color Urine Appearance Urine pH (5.0-8.0) Ur Specific [place] (1.005-1.025) Urine Protein (NEG-TRACE) MG/DL Urine Glucose (UA) (NEG) MG/DL Urine Ketones (NEG) MG/DL Urine Blood (NEG) Urine Nitrite (NEG) Ur Leukocyte Esterase (NEG) Urine RBC (0) /HPF Urine WBC (0-4) /HPF Ur Squamous Epith Cells /LPF Urine Bacteria /LPF Respiratory Panel [place] Adenovirus (Rapid PCR) (Not Detect.) B.pert (TEM-PCR) (Not Detect.) B.parapertussis DNA PCR (Not Detect.) C. pneumoniae DNA (PCR) (Not Detect.) Coronavirus (PCR) (Negative) Coronavirus OC43 (PCR) (Not Detect.) Coronavirus HKU1 (PCR) (Not Detect.) Coronavirus 229E (PCR) (Not Detect.) Coronavirus NL63 (PCR) (Not Detect.) Human Metapneumovir PCR (Not Detect.) Influenza A (RT-PCR) (Not Detect.) Influenza Type A (PCR) (Negative) Influenza B (RT-PCR) (Not Detect.) Influenza Type B (PCR) (Negative) M. pneumoniae (PCR) (Not Detect.) Parainfluenza 1 (PCR) (Not Detect.) Parainfluenza 2 (PCR) (Not Detect.) Parainfluenza 3 (PCR) (Not Detect.) Parainfluenza 4 (PCR) (Not Detect.) RSV (PCR) (Not Detect.) RSV RNA Qual (PCR) (Negative) Entero/Rhino (PCR) (Not Detect.) SARS-CoV-2 RNA (RT-PCR) (Not Detect.) 11/20/20 11/20/20 11/20/20 Range/Units 13:19 13:19 14:32 WBC (4.8-10.8) X10*3/uL RBC (4.60-5.80) X10*6/uL Hgb (14.0-18.0) g/dl Hct (42-52) % MCV (80-98) fL MCH (27.0-33.0) pg MCHC (31.0-36.0) g/dl RDW (11.0-16.0) % Plt Count (160-400) X10*3/uL MPV (9.4-12.4) fL Immature Gran % (Auto) (0.0-0.4) % Neut % (Auto) (45-73) % Lymph % (Auto) (20-40) % [place] % (Auto) (2-11) % Eos % (Auto) (0-4) % Baso % (Auto) (0-2) % Lymph # (Auto) (1.2-4.9) X10*3/uL [place] # (Auto) (0.1-1.2) X10*3/uL Eos # (Auto) (0.0-0.4) X10*3/uL Baso # (Auto) (0.0-0.2) X10*3/uL Abs Immat Gran (auto) (0.00-0.03) X10*3/uL Absolute Neuts (auto) (2.0-8.3) X10*3/uL Absolute Nucleated RBC (0.0-0.012) X10*3/uL Nucleated RBC % (auto) (0.0-0.2) /100WBC Hold Blue Top Sodium Potassium Chloride Carbon Dioxide Anion Gap BUN Creatinine Estim Creat Clear Calc Estimated GFR POC Glucose (60-115) mg/dL Random Glucose Lactic Acid (0.5-2.0) mmol/L Lactic Acid Fup @ 2Hr 1.8 (0.5-2.0) mmol/L Calcium Magnesium Total Bilirubin Direct Bilirubin AST ALT Alkaline Phosphatase Total Creatine Kinase (38-174) U/L Troponin I High Sens 79.8 H (<3.5-35.0) ng/L C-Reactive Protein B-Natriuretic Peptide (<100) pg/mL Total Protein Albumin Procalcitonin ng/mL Urine Color YELLOW Urine Appearance CLEAR Urine pH 5.5 (5.0-8.0) Ur Specific [place] 1.020 (1.005-1.025) Urine Protein NEG (NEG-TRACE) MG/DL Urine Glucose (UA) 500 H (NEG) MG/DL Urine Ketones NEG (NEG) MG/DL Urine Blood TRACE (NEG) Urine Nitrite NEG (NEG) Ur Leukocyte Esterase NEG (NEG) Urine RBC 0-2 (0) /HPF Urine WBC 0 (0-4) /HPF Ur Squamous Epith Cells NONE /LPF Urine Bacteria NONE /LPF Respiratory Panel [place] Adenovirus (Rapid PCR) (Not Detect.) B.pert (TEM-PCR) (Not Detect.) B.parapertussis DNA PCR (Not Detect.) C. pneumoniae DNA (PCR) (Not Detect.) Coronavirus (PCR) (Negative) Coronavirus OC43 (PCR) (Not Detect.) Coronavirus HKU1 (PCR) (Not Detect.) Coronavirus 229E (PCR) (Not Detect.) Coronavirus NL63 (PCR) (Not Detect.) Human Metapneumovir PCR (Not Detect.) Influenza A (RT-PCR) (Not Detect.) Influenza Type A (PCR) (Negative) Influenza B (RT-PCR) (Not Detect.) Influenza Type B (PCR) (Negative) M. pneumoniae (PCR) (Not Detect.) Parainfluenza 1 (PCR) (Not Detect.) Parainfluenza 2 (PCR) (Not Detect.) Parainfluenza 3 (PCR) (Not Detect.) Parainfluenza 4 (PCR) (Not Detect.) RSV (PCR) (Not Detect.) RSV RNA Qual (PCR) (Negative) Entero/Rhino (PCR) (Not Detect.) SARS-CoV-2 RNA (RT-PCR) (Not Detect.) 11/20/20 11/20/20 Range/Units 15:12 21:11 WBC (4.8-10.8) X10*3/uL RBC (4.60-5.80) X10*6/uL Hgb (14.0-18.0) g/dl Hct (42-52) % MCV (80-98) fL MCH (27.0-33.0) pg MCHC (31.0-36.0) g/dl RDW (11.0-16.0) % Plt Count (160-400) X10*3/uL MPV (9.4-12.4) fL Immature Gran % (Auto) (0.0-0.4) % Neut % (Auto) (45-73) % Lymph % (Auto) (20-40) % [place] % (Auto) (2-11) % Eos % (Auto) (0-4) % Baso % (Auto) (0-2) % Lymph # (Auto) (1.2-4.9) X10*3/uL [place] # (Auto) (0.1-1.2) X10*3/uL Eos # (Auto) (0.0-0.4) X10*3/uL Baso # (Auto) (0.0-0.2) X10*3/uL Abs Immat Gran (auto) (0.00-0.03) X10*3/uL Absolute Neuts (auto) (2.0-8.3) X10*3/uL Absolute Nucleated RBC (0.0-0.012) X10*3/uL Nucleated RBC % (auto) (0.0-0.2) /100WBC Hold Blue Top Sodium Potassium Chloride Carbon Dioxide Anion Gap BUN Creatinine Estim Creat Clear Calc Estimated GFR POC Glucose 97 158 H (60-115) mg/dL Random Glucose Lactic Acid (0.5-2.0) mmol/L Lactic Acid Fup @ 2Hr (0.5-2.0) mmol/L Calcium Magnesium Total Bilirubin Direct Bilirubin AST ALT Alkaline Phosphatase Total Creatine Kinase (38-174) U/L Troponin I High Sens (<3.5-35.0) ng/L C-Reactive Protein B-Natriuretic Peptide (<100) pg/mL Total Protein Albumin Procalcitonin ng/mL Urine Color Urine Appearance Urine pH (5.0-8.0) Ur Specific [place] (1.005-1.025) Urine Protein (NEG-TRACE) MG/DL Urine Glucose (UA) (NEG) MG/DL Urine Ketones (NEG) MG/DL Urine Blood (NEG) Urine Nitrite (NEG) Ur Leukocyte Esterase (NEG) Urine RBC (0) /HPF Urine WBC (0-4) /HPF Ur Squamous Epith Cells /LPF Urine Bacteria /LPF Respiratory Panel [place] Adenovirus (Rapid PCR) (Not Detect.) B.pert (TEM-PCR) (Not Detect.) B.parapertussis DNA PCR (Not Detect.) C. pneumoniae DNA (PCR) (Not Detect.) Coronavirus (PCR) (Negative) Coronavirus OC43 (PCR) (Not Detect.) Coronavirus HKU1 (PCR) (Not Detect.) Coronavirus 229E (PCR) (Not Detect.) Coronavirus NL63 (PCR) (Not Detect.) Human Metapneumovir PCR (Not Detect.) Influenza A (RT-PCR) (Not Detect.) Influenza Type A (PCR) (Negative) Influenza B (RT-PCR) (Not Detect.) Influenza Type B (PCR) (Negative) M. pneumoniae (PCR) (Not Detect.) Parainfluenza 1 (PCR) (Not Detect.) Parainfluenza 2 (PCR) (Not Detect.) Parainfluenza 3 (PCR) (Not Detect.) Parainfluenza 4 (PCR) (Not Detect.) RSV (PCR) (Not Detect.) RSV RNA Qual (PCR) (Negative) Entero/Rhino (PCR) (Not Detect.) SARS-CoV-2 RNA (RT-PCR) (Not Detect.) <Aly Ferguson MD - Last Filed: 11/21/20 10:15> ECG Data ECG #1: Attestation: I personally reviewed and interpreted this ECG as follows: <MARCOS Cerda - Last Filed: 11/20/20 16:47> Prior ECG tracings: not available for review <MARCOS Cerda - Last Filed: 11/20/20 16:47> Interpretation: normal sinus rhythm, HR 74 bpm, prolonged NV interval 202 ms, normal QTc, t-wave inverstions in lead I & aVL, consistent with possible lateral ischemia <MARCOS Cerda - Last Filed: 11/20/20 16:47> Critical Care Time Critical Care Time Critical Care Time: Yes <MARCOS Cerda - Last Filed: 11/20/20 16:47> Total Critical Care Time: 70 <MARCOS Cerda - Last Filed: 11/20/20 16:47> Attestation: I attest to critical care time spent caring for this patient with severe sepsis; time spent reviewing labs, imaging, and frequently reassessing patient's mental, hemodynamic and respiratory status. <MARCOS Cerda - Last Filed: 11/20/20 16:47> Discharge Plan Discharge Clinical Impression: Severe sepsis, Acute metabolic encephalopathy Pneumonia Qualifiers: Pneumonia type: due to unspecified organism Laterality: right Lung location: upper lobe of lung Qualified Code(s): J18.9 - Pneumonia, unspecified organism <MARCOS Cerda - Last Filed: 11/20/20 16:47> Patient Disposition: Admitted As Inpatient <MARCOS Cerda Last Filed: 11/20/20 16:47> Sepsis Event Note Evaluation Current stage of sepsis: sepsis <MARCOS Cerda - Last Filed: 11/20/20 16:47> Possible source: pulmonary, GI tract/intra-abdominal and genitourinary <MARCOS Cerda - Last Filed: 11/20/20 16:47> Focused Exam Vital signs: Vital Signs Temp Pulse Resp BP Pulse Ox 11/20/20 16:40 93 11/20/20 16:17 102.9 F H 868 H 22 H 120/59 L 98 11/20/20 15:17 101.8 F H 78 16 92/55 L 99 11/20/20 15:10 83/50 L 11/20/20 14:45 77/42 L 11/20/20 14:43 102.2 F H 72 18 91/48 L 96 11/20/20 14:30 70/40 L 11/20/20 12:00 103.5 F H 71 20 124/61 94 11/20/20 11:28 104.2 F H 76 20 122/64 93 11/20/20 09:34 104.5 F H 86 18 136/75 95 <MARCOS Cerda - Last Filed: 11/20/20 16:47> Vital Signs Temp Pulse Resp BP Pulse Ox 11/20/20 16:40 93 11/20/20 16:17 102.9 F H 868 H 22 H 120/59 L 98 11/20/20 15:17 101.8 F H 78 16 92/55 L 99 11/20/20 15:10 83/50 L 11/20/20 14:45 77/42 L 11/20/20 14:43 102.2 F H 72 18 91/48 L 96 11/20/20 14:30 70/40 L 11/20/20 12:00 103.5 F H 71 20 124/61 94 11/20/20 11:28 104.2 F H 76 20 122/64 93 11/20/20 09:34 104.5 F H 86 18 136/75 95 <Aly Ferguson MD - Last Filed: 11/21/20 10:15> [facility] Past Medical History Attestation statement: The following information was validated with the patient. <MARCOS Cerda - Last Filed: 11/20/20 16:47> Medical History: Medical History (Updated 11/20/20 @ 18:45 by Addis Morocho NP) Diabetes Hyperlipidemia Hypertension Septic shock <MARCOS Cerda - Last Filed: 11/20/20 16:47> Social History Social History: Social History Alcohol intake: never Smoking Status: Never smoker Use of substances other than those prescribed or required for medical reasons: No Advance Directives: No Advance Directives Information Provided: No <MARCOS Cerda - Last Filed: 11/20/20 16:47>
[2020-11-20] MEDS: Acetaminophen 325 MG TABLET 975 MG PO ×2 (10:13→17:19)
[2020-11-20] MEDS: Piperacillin Sodium/Tazobactam 4.5 GM in 0.9 % Sodium Chloride 100 ML IV (10:13)
[2020-11-20] MEDS: 0.9 % Sodium Chloride 1,000 ML 999 ML IVCONT ×4 (10:20→15:15)
[2020-11-20 10:28] LABS: MANUAL DIFF FLAG NO
[2020-11-20 10:31] LABS: Basophils Percent Auto 0.1 % (0-2); Hematocrit 43.9 % (42-52); Hemoglobin 15.1 g/dl (14.0-18.0); Imm Gran Abs Auto 0.12 X10*3/uL (0.00-0.03); Imm Gran Pct Auto 0.8 % (0.0-0.4); Lymphocytes Absolute Auto 0.8 X10*3/uL (1.2-4.9); Lymphocytes Percent Auto 5.3 % (20-40); Mean Corpuscular HGB Conc 34.4 g/dl (31.0-36.0); Mean Corpuscular Hemoglobin 29.7 pg (27.0-33.0); Mean Corpuscular Volume 86.4 fL (80-98); Mean Platelet Volume 9.8 fL (9.4-12.4); Monocytes Absolute Auto 1.1 X10*3/uL (0.1-1.2); Monocytes Percent Auto 7.3 % (2-11); Neutrophils Absolute Auto 12.8 X10*3/uL (2.0-8.3); Neutrophils Percent Auto 86.5 % (45-73); Platelet Count 180 X10*3/uL (160-400); Red Blood Count 5.08 X10*6/uL (4.60-5.80); Red Cell Distribution Width 12.5 % (11.0-16.0); White Blood Count 14.8 X10*3/uL (4.8-10.8)
[2020-11-20 11:14] LABS: B Type Natriuretic Peptide 95 pg/mL (<100); Troponin-I High Sensitivity 79.6 ng/L (<3.5-35.0)
[2020-11-20 11:21] LABS: Lactic Acid 3.2 mmol/L (0.5-2.0)
[2020-11-20 11:24] LABS: Alanine Aminotransferase 26 U/L (0-40); Albumin Level 4.3 g/dL (3.5-5.0); Alkaline Phosphatase 131 U/L (39-117); Anion Gap 17 (12-20); Aspartate Amino Transferase 29 U/L (5-37); Bilirubin Direct 0.5 mg/dL (0.0-0.5); Bilirubin Total 1.2 mg/dL (0.0-1.0); Blood Urea Nitrogen 25 mg/dL (9-16); C Reactive Protein 3.09 mg/dL (< or = 0.50); Calcium 8.8 mg/dL (8.4-10.2); Carbon Dioxide 28 mmol/L (22-29); Chloride 94 mmol/L (96-108); Estimated Glomerular Filt Rate > 60; Glucose Random 179 mg/dL (60-115); Magnesium 1.7 mg/dL (1.6-2.6); Potassium 3.1 mmol/L (3.3-5.1); Sodium 136 mmol/L (135-145); Total Protein 7.1 g/dL (6.5-8.0)
[2020-11-20 11:38] LABS: Influenza A PCR NEGATIVE (Negative); Influenza B PCR NEGATIVE (Negative); Resp Syncy Virus RNA Qual PCR NEGATIVE (Negative); SARS COV2 PCR INHOUSE NEGATIVE (Negative)
[2020-11-20 12:28] LABS: Reflex Lactate? Lactic Acid Added
[2020-11-20] MEDS: Ketorolac Tromethamine 30 MG/ML VIAL IVPUSH (12:33)
--- NOTE | 2020-11-20 12:48 | PC.NURSE ---
Jackeline RN, Pt returned to unit from CT scan. Vanco started. rectal probe placed, rectal temp reading 103.5 at this time. Cool pack to posterior neck. Pt reports abd pain but unable to give number. Answers and responds to simple questions. nsr on tele, rate 70s. 02 sat 93-94% on room air, 2lpm via nc placed, no diff breathing noted.
[2020-11-20] MEDS: Potassium Chloride ER 20 MEQ TAB.ER.PRT 60 MEQ PO (13:03)
--- NOTE | 2020-11-20 14:02 | PC.NURSE ---
ICEE APPLIED TO GROINS AND BACK OF NECK
[2020-11-20 14:10] LABS: ~Lactic Acid-LAB USE ONLY 1.8 mmol/L (0.5-2.0)
[2020-11-20 14:19] LABS: Procalcitonin 0.24 ng/mL
[2020-11-20 14:20] LABS: Troponin-I High Sensitivity 79.8 ng/L (<3.5-35.0)
[2020-11-20 14:40] LABS: Glucose Urine UA 500 MG/DL (NEG); Leukocyte Esterase Urine NEG (NEG); Nitrite Urine NEG (NEG); PH 5.5 (5.0-8.0); Urine Blood TRACE (NEG); Urine Ketones NEG (NEG); Urine Protein NEG (NEG-TRACE)
[2020-11-20 14:42] LABS: Appearance Urine CLEAR; Color Urine YELLOW
[2020-11-20 14:47] LABS: RBC Urine 0-2 /HPF (0); WBC Urine 0 /HPF (0-4)
--- NOTE | 2020-11-20 15:18 | PC.NURSE ---
central line placed. liter started. vs [id number]. poc 97 reported to Brianna RODRÍGUEZ
[2020-11-20] MEDS: Albuterol Sulfate (0.083%) 2.5 MG/3 ML VIAL.NEB 5 MG INHALE (16:37)
[2020-11-20 16:44] LABS: Adenovirus PCR Not Detected (Not Detect.); Bordetella parapertussis PCR Not Detected (Not Detect.); Bordetella pertussis PCR Not Detected (Not Detect.); Chlamydia pneumoniae PCR Not Detected (Not Detect.); Coronavirus 229E PCR Not Detected (Not Detect.); Coronavirus HKU1 PCR Not Detected (Not Detect.); Coronavirus NL63 PCR Not Detected (Not Detect.); Coronavirus OC43 PCR Not Detected (Not Detect.); Human metapneumovirus PCR Not Detected (Not Detect.); Influenza A PCR Not Detected (Not Detect.); Influenza B PCR Not Detected (Not Detect.); Mycoplasma pneumoniae PCR Not Detected (Not Detect.); Parainfluenza 1 PCR Not Detected (Not Detect.); Parainfluenza 2 PCR Not Detected (Not Detect.); Parainfluenza 3 PCR Not Detected (Not Detect.); Parainfluenza 4 PCR Not Detected (Not Detect.); RSV PCR Not Detected (Not Detect.); Rhino/Enterovirus PCR Not Detected (Not Detect.); SARS-CoV-2 PCR Not Detected (Not Detect.)
--- NOTE | 2020-11-20 18:24 | P.HPHOSP_ITS ---
History of Present Illness Date of Service: 11/20/20 Chief Complaint: Fever 65 year old man presenting with fever, shortness of breath and cough. He reported a cough that started last night. Attempted to reach patients bruno Ortiz ([phone]) but unable to reach him. He has fever, tachycardia, leukocytosis, lactic acidosis. He is lethargic. Apparently he rolled out of bed and fell on the floor. He had some dizziness at home. No LOC. He had multiple imaging studies in the ER head CT, chest x-ray, abdominal CT were all negative for any acute abnormalities. Chest CTA showed bronchial wall thickening with clustered nodules in the lateral periphery of the right upper lobe suggesting underlying infection versus inflammatory process. No focal consolidation seen. Negative COVID-19 PCR. Blood pressures initially systolic clear in the 70s. Improved somewhat with IV fluids. He was noted to have an elevated white blood cell count of 14.8, potassium 3.1, lactic acid 3.2, total CK 515, troponin 79.6 with repeat of 79.8. He was started on broad-spectrum treatment including vancomycin and Zosyn. He received 4 L of IV fluids. He also received potassium and Tylenol. case discussed with ED attending. Will admit patient wants blood pressure maps are above 65. Review of Systems Review of Systems: Reports fever chills or decrease in appetite respiratory See HPI cardiovascular is adjustment of any PND or edema gastrointestinal denies any dysphagia abdominal pain nausea vomiting or diarrhea genitourinary denies any dysuria frequency or hematuria musculoskeletal denies any joint pain or swelling neuropsych denies any weakness or seizures all other systems reviewed are negative [facility] Medical History (Updated 11/20/20 @ 18:45 by Addis Morocho NP) Diabetes Hyperlipidemia Hypertension Septic shock Social History Alcohol intake: never Smoking Status: Never smoker Use of substances other than those prescribed or required for medical reasons: No Advance Directives: No Advance Directives Information Provided: No Meds Allergies Allergy/AdvReac Type Severity Reaction Status Date / Time No Known Allergies Allergy Mild NONE Unverified 06/15/20 14:38 Active Medications: Current Medications Generic Name Dose Route Start Last Admin Trade Name Freq PRN Reason Stop Dose Admin Acetaminophen 650 mg 11/20/20 18:10 Acetaminophen 325 Mg Tablet PO Q6H PRN Pain, Mild (Pain Scale 1-3) Albuterol Sulfate 2.5 mg 11/20/20 18:10 Albuterol Sulfate (0.083%) 2.5 Mg/3 Ml Vial.Neb INHALE Q4H PRN Shortness Of Breath Or Wheezing Aspirin 81 mg 11/21/20 09:00 Aspirin Enteric Coated 81 Mg Tablet.Dr PO DAILY [facility] Atorvastatin Calcium 80 mg 11/21/20 09:00 Atorvastatin Calcium 80 Mg Tablet PO DAILY [facility] Enoxaparin Sodium 40 mg 11/20/20 18:15 Enoxaparin Sodium 40 Mg/0.4 Ml Syringe SUBCUT Q24H [facility] Gabapentin 800 mg 11/20/20 21:00 Gabapentin 400 Mg Capsule PO TID [facility] Vancomycin HCl 1,000 mg/ 270 mls @ 270 mls/hr 11/21/20 01:00 Sodium Chloride IV Q12H [facility] Insulin Glargine 60 unit 11/20/20 21:00 Insulin Glargine,Hum.Rec.Anlog 100 Unit/Ml 10 Ml Vial SUBCUT BEDTIME [facility] Pharmacy Consult 1 each 11/20/20 09:14 Consult Rx Vancomycin Dosing MISCELLANE DAILY PRN Consult order Pharmacy Consult 1 each 11/20/20 09:15 Consult Rx Perform Med Rec MISCELLANE ONCE PRN Consult order Sodium Chloride 3 ml 11/21/20 00:00 0.9 % Sodium Chloride Flush 3 Ml Syringe IVFLUSH QSHIFT [facility] Tamsulosin HCl 0.4 mg 11/21/20 09:00 Tamsulosin Hcl 0.4 Mg Capsule PO DAILY [facility] Home Medications Medication Instructions Recorded Confirmed Last Taken Type albuterol sulfate 2.5 mg INHALATION Q4H PRN 11/20/20 11/20/20 Unknown History aspirin 81 mg PO DAILY 11/20/20 11/20/20 11/20/20 History atorvastatin 80 mg PO DAILY 11/20/20 11/20/20 11/19/20 History gabapentin 800 mg PO TID 11/20/20 11/20/20 11/20/20 History hydrochlorothiazide 25 mg PO DAILY 11/20/20 11/20/20 11/19/20 History insulin glargine [Lantus U-100 60 unit SUBCUT BEDTIME 11/20/20 11/20/20 11/19/20 History Insulin] losartan 100 mg PO DAILY 11/20/20 11/20/20 11/19/20 History prednisone See Rx Instructions .ROUTE .COMPLEX 11/20/20 11/20/20 Unknown History tamsulosin 0.4 mg PO DAILY 11/20/20 11/20/20 11/19/20 History Physical Exam Vital Signs and Narrative: Vital Signs: Last Vital Signs Temp 103.6 F H 11/20/20 17: Pulse 90 11/20/20 17:21 Resp 20 11/20/20 17:21 BP 97/42 L 11/20/20 17: Pulse Ox 98 11/20/20 17: Body Mass Index 33.2 Appearing lethargic head is normocephalic atraumatic eyes pupils are PERRLA sclera is anicteric mouth throat mucous membranes are intact and moist neck is supple no lymphadenopathy, no JVD noted lung sounds dim/coarse heart regular rate rhythm, clear S1, S2 positive bowel sounds, abdomen is soft, nontender neuro patient is alert, no focal deficits Skin. No open wounds or sores. Results Labs CBC and Chem 7: 11/20/20 10:09 11/20/20 10:09 Labs: Laboratory Results - last 24 hr 11/20/20 11/20/20 11/20/20 10:08 10:08 10:08 MCV MCH MCHC RDW Plt Count MPV Immature Gran % (Auto) Neut % (Auto) Lymph % (Auto) [place] % (Auto) Eos % (Auto) Baso % (Auto) Lymph # (Auto) [place] # (Auto) Eos # (Auto) Baso # (Auto) Abs Immat Gran (auto) Absolute Neuts (auto) Absolute Nucleated RBC Nucleated RBC % (auto) Hold Blue Top Anion Gap Cancelled Estim Creat Clear Calc Cancelled Estimated GFR Cancelled Random Glucose Cancelled Lactic Acid Lactic Acid Fup @ 2Hr Calcium Cancelled Magnesium Cancelled Total Bilirubin Cancelled Direct Bilirubin Cancelled AST Cancelled ALT Cancelled Alkaline Phosphatase Cancelled Total Creatine Kinase Troponin I High Sens C-Reactive Protein Cancelled B-Natriuretic Peptide Total Protein Cancelled Albumin Cancelled Procalcitonin 0.24 Urine Color Urine Appearance Urine pH Ur Specific [place] Urine Protein Urine Glucose (UA) Urine Ketones Urine Blood Urine Nitrite Ur Leukocyte Esterase Urine RBC Urine WBC Ur Squamous Epith Cells Urine Bacteria Coronavirus (PCR) NEGATIVE Influenza Type A (PCR) NEGATIVE Influenza Type B (PCR) NEGATIVE RSV RNA Qual (PCR) NEGATIVE 11/20/20 11/20/20 11/20/20 10:09 10:09 10:09 MCV 86.4 MCH 29.7 MCHC 34.4 RDW 12.5 Plt Count 180 MPV 9.8 Immature Gran % (Auto) 0.8 H Neut % (Auto) 86.5 H Lymph % (Auto) 5.3 L [place] % (Auto) 7.3 Eos % (Auto) 0.0 Baso % (Auto) 0.1 Lymph # (Auto) 0.8 L [place] # (Auto) 1.1 Eos # (Auto) 0.0 Baso # (Auto) 0.0 Abs Immat Gran (auto) 0.12 H Absolute Neuts (auto) 12.8 H Absolute Nucleated RBC 0.000 Nucleated RBC % (auto) 0.0 Hold Blue Top SEE NOTE Anion Gap 17 Estim Creat Clear Calc 77.0 Estimated GFR > 60 Random Glucose 179 H Lactic Acid Lactic Acid Fup @ 2Hr Calcium 8.8 Magnesium 1.7 Total Bilirubin 1.2 H Direct Bilirubin 0.5 AST 29 ALT 26 Alkaline Phosphatase 131 H Total Creatine Kinase 515 H Troponin I High Sens C-Reactive Protein 3.09 H B-Natriuretic Peptide Total Protein 7.1 Albumin 4.3 Procalcitonin Urine Color Urine Appearance Urine pH Ur Specific [place] Urine Protein Urine Glucose (UA) Urine Ketones Urine Blood Urine Nitrite Ur Leukocyte Esterase Urine RBC Urine WBC Ur Squamous Epith Cells Urine Bacteria Coronavirus (PCR) Influenza Type A (PCR) Influenza Type B (PCR) RSV RNA Qual (PCR) 11/20/20 11/20/20 11/20/20 10:09 10:09 13:19 MCV MCH MCHC RDW Plt Count MPV Immature Gran % (Auto) Neut % (Auto) Lymph % (Auto) [place] % (Auto) Eos % (Auto) Baso % (Auto) Lymph # (Auto) [place] # (Auto) Eos # (Auto) Baso # (Auto) Abs Immat Gran (auto) Absolute Neuts (auto) Absolute Nucleated RBC Nucleated RBC % (auto) Hold Blue Top Anion Gap Estim Creat Clear Calc Estimated GFR Random Glucose Lactic Acid 3.2 H* Lactic Acid Fup @ 2Hr Calcium Magnesium Total Bilirubin Direct Bilirubin AST ALT Alkaline Phosphatase Total Creatine Kinase Troponin I High Sens 79.6 H 79.8 H C-Reactive Protein B-Natriuretic Peptide 95 Total Protein Albumin Procalcitonin Urine Color Urine Appearance Urine pH Ur Specific [place] Urine Protein Urine Glucose (UA) Urine Ketones Urine Blood Urine Nitrite Ur Leukocyte Esterase Urine RBC Urine WBC Ur Squamous Epith Cells Urine Bacteria Coronavirus (PCR) Influenza Type A (PCR) Influenza Type B (PCR) RSV RNA Qual (PCR) 11/20/20 11/20/20 13:19 14:32 MCV MCH MCHC RDW Plt Count MPV Immature Gran % (Auto) Neut % (Auto) Lymph % (Auto) [place] % (Auto) Eos % (Auto) Baso % (Auto) Lymph # (Auto) [place] # (Auto) Eos # (Auto) Baso # (Auto) Abs Immat Gran (auto) Absolute Neuts (auto) Absolute Nucleated RBC Nucleated RBC % (auto) Hold Blue Top Anion Gap Estim Creat Clear Calc Estimated GFR Random Glucose Lactic Acid Lactic Acid Fup @ 2Hr 1.8 Calcium Magnesium Total Bilirubin Direct Bilirubin AST ALT Alkaline Phosphatase Total Creatine Kinase Troponin I High Sens C-Reactive Protein B-Natriuretic Peptide Total Protein Albumin Procalcitonin Urine Color YELLOW Urine Appearance CLEAR Urine pH 5.5 Ur Specific [place] 1.020 Urine Protein NEG Urine Glucose (UA) 500 H Urine Ketones NEG Urine Blood TRACE Urine Nitrite NEG Ur Leukocyte Esterase NEG Urine RBC 0-2 Urine WBC 0 Ur Squamous Epith Cells NONE Urine Bacteria NONE Coronavirus (PCR) Influenza Type A (PCR) Influenza Type B (PCR) RSV RNA Qual (PCR) Imaging Radiologist's Impressions: Impressions Chest X-Ray 11/20/20 08:50 IMPRESSION: No evidence for acute disease in the chest. Abdomen/Pelvis CT 11/20/20 11:26 IMPRESSION: No pulmonary embolus seen. There is bronchial wall thickening with clustered nodules in the lateral periphery of the right upper lobe suggesting underlying infectious or inflammatory process. No dense focal consolidation. This is not the typical appearance of viral COVID pneumonitis. There is asymmetric hypoenhancement of the posterior aspect of the left kidney. Although this could be artifactual due to patient positioning, pyelonephritis is possible. Consider correlation with urinalysis. Head CT 11/20/20 11:26 IMPRESSION: Unremarkable exam. Chest CTA 11/20/20 11:39 IMPRESSION: No pulmonary embolus seen. There is bronchial wall thickening with clustered nodules in the lateral periphery of the right upper lobe suggesting underlying infectious or inflammatory process. No dense focal consolidation. This is not the typical appearance of viral COVID pneumonitis. There is asymmetric hypoenhancement of the posterior aspect of the left kidney. Although this could be artifactual due to patient positioning, pyelonephritis is possible. Consider correlation with urinalysis. Chest X-Ray 11/20/20 15:17 IMPRESSION: New right internal jugular approach central venous catheter with tip near the cavoatrial junction. No pneumothorax. Assessment and Plan (1) Septic shock: Status: Inactive (2) Acute metabolic encephalopathy: Status: Acute 65 year old khmer speaking man admitted with septic shock with no clear source. Chest CTA showed a possible infiltrate, urinalysis negative. Will treat broadly for now. Septic shock. Fever, tachycardia, tachypnea, hypotension, lactic acidosis. No clear source. Blood cultures pending. received 4 liters of IV fluids. Doesn not seem bacterial with high fevers, possible viral infection vs pneumonia although no clear consolidation seen. Diabetes. Sliding scale. Hypertension with hypotension. Hold HCTZ, Losartan. HLD. Aspirin and statin DVT prophylaxis with Lovenox. Discussed with Dr. Alcocer Full code
--- NOTE | 2020-11-20 18:45 | P.EN_ITS ---
Event Note Date of Service: 11/20/20 Event Note: admission note the patient was seen and evaluated with Addis Morocho NP. I agree with her note, assessment and plan with the following. In summary, A 65 years old male with PMH of DM, HLF, HTN who presents to the hospital with weakness, fever and cough. The patient is not the best historian but reported that for the last few days he became weak and noticed fevers. Has been coughing before that. today he fell and was unable to get up and was brought to ED. CT chest concerning for possible infiltrates and nodules cluster RUL but nothing major reported overall. negative covid 19 no skin rash or wounds noticed. expiratory wheezes and basal fine crackles noted on exam. He was noted to be febrile not responsive well to tylenol and still T of 104 BP noticed to be on the lower end of 80s/40-50s. Admission held until MAP improves to >65 Severe sepsis 2/2 possible pneumonia\viral infx pending Resp panel to start broad spectrum Abx Vanco\Zosyn IVF Hypotensive; to correct with IVF and might need pressors and ICU monitoring Admission pending correction of BP Rest of evaluations by TYPESETTING MACHINE TENDER note.
[2020-11-20] MEDS: 0.9 % Sodium Chloride 1,000 ML 500 ML IV ×2 (19:02→20:51)
[2020-11-20] MEDS: Piperacillin Sodium/Tazobactam 3.375 GM in 0.9 % Sodium Chloride 50 ML IV (19:10)
[2020-11-20] MEDS: Enoxaparin Sodium 40 MG/0.4 ML SYRINGE SUBCUT (19:10)
[2020-11-20 21:47] LABS: Glucose, Whole Blood 158 mg/dL (60-115)
[2020-11-20 21:47] LABS: Glucose, Whole Blood 97 mg/dL (60-115)
[2020-11-20] MEDS: Insulin Glargine,Hum.rec.anlog 100 UNIT/ML 10 ML VIAL 60 UNIT SUBCUT (22:20)
[2020-11-20] MEDS: Insulin Lispro 100 UNIT/ML 3 ML VIAL SUBCUT (22:20)
--- NOTE | 2020-11-20 23:58 | PC.NURSE ---
Report taken from Jossy, this RN resuming care. Pt sleeping in bed at this time, IVF complete. VSS, awaiting bed assignment. Continue to monitor.
[2020-11-21] VITALS (9 sets, daily range): BP systolic 128–158; BP diastolic 70–83; PULSE 59–83; RESP 16–21; TEMP 36.8–39.1; O2SAT 93–100; BMI 33.2
[2020-11-21] MEDS: 0.9 % Sodium Chloride Flush 3 ML SYRINGE IVFLUSH ×4 (00:40→20:52)
[2020-11-21] MEDS: vancomycin HCL 1,000 MG in 0.9 % Sodium Chloride 250 ML 270 MG IV ×2 (01:57→15:25)
[2020-11-21] MEDS: Piperacillin Sodium/Tazobactam 3.375 GM in 0.9 % Sodium Chloride 50 ML IV ×4 (01:57→18:30)
[2020-11-21] MEDS: Acetaminophen 325 MG TABLET 650 MG PO ×2 (02:18→19:45)
--- NOTE | 2020-11-21 02:23 | PC.NURSE ---
Pt resting in bed, wakes easily to voice, alert and oriented to person/place. Pt denies pain but states he feels hot, core temp noted to be 100.4 Pt medicated with ABX and Tylenol per NOV. VSS at this time. Call rios within reach. Continue to monitor.
--- NOTE | 2020-11-21 04:28 | PC.NURSE ---
Hospitalist contacted via [place] text regarding elevated temp despite Tylenol given @ 4173.
--- NOTE | 2020-11-21 06:07 | PC.NURSE ---
Pt requesting to use the commode, states he needs to move his bowels and is unable to stand. Rectal core temp removed due to need to move bowels. Pt on the commode for some time, unable to move his bowels. A small amount of blood noted on pts hospital gown, pt found to be bleeding from langford insertion site. Nelia care and a new hospital gown provided. Pts langford resecured to leg. Bleeding to site noted to have subsided at this time. VSS. Call rios within reach, continue to monitor.
[2020-11-21 06:47] LABS: Basophils Percent Auto 0.4 % (0-2); Eosinophils Absolute Auto 0.2 X10*3/uL (0.0-0.4); Eosinophils Percent Auto 1.6 % (0-4); Hematocrit 38.6 % (42-52); Hemoglobin 13.1 g/dl (14.0-18.0); Imm Gran Abs Auto 0.03 X10*3/uL (0.00-0.03); Imm Gran Pct Auto 0.3 % (0.0-0.4); Lymphocytes Absolute Auto 0.7 X10*3/uL (1.2-4.9); Lymphocytes Percent Auto 5.8 % (20-40); MANUAL DIFF FLAG SCAN; Mean Corpuscular HGB Conc 33.9 g/dl (31.0-36.0); Mean Corpuscular Hemoglobin 29.6 pg (27.0-33.0); Mean Corpuscular Volume 87.3 fL (80-98); Mean Platelet Volume 9.6 fL (9.4-12.4); Monocytes Absolute Auto 0.6 X10*3/uL (0.1-1.2); Monocytes Percent Auto 5.3 % (2-11); Neutrophils Absolute Auto 9.7 X10*3/uL (2.0-8.3); Neutrophils Percent Auto 86.6 % (45-73); Platelet Count 130 X10*3/uL (160-400); Red Blood Count 4.42 X10*6/uL (4.60-5.80); Red Cell Distribution Width 13.1 % (11.0-16.0); SCAN SMEAR FLAG 1; White Blood Count 11.2 X10*3/uL (4.8-10.8)
[2020-11-21 07:05] LABS: Anion Gap 9 (12-20); Blood Urea Nitrogen 25 mg/dL (9-16); Carbon Dioxide 24 mmol/L (22-29); Chloride 108 mmol/L (96-108); Creatinine Clr Calc Pharmacy 119.7; Estimated Glomerular Filt Rate > 60; Glucose Random 148 mg/dL (60-115); Potassium 3.5 mmol/L (3.3-5.1); Sodium 137 mmol/L (135-145)
[2020-11-21 07:19] LABS: Calcium 6.7 mg/dL (8.4-10.2)
[2020-11-21 07:25] LABS: Glucose, Whole Blood 173 mg/dL (60-115)
[2020-11-21 07:47] LABS: SLIDE REVIEW VERIFIED
[2020-11-21] MEDS: Insulin Lispro 100 UNIT/ML 3 ML VIAL SUBCUT ×4 (09:26→22:53)
[2020-11-21] MEDS: Tamsulosin HCL 0.4 MG CAPSULE PO (09:26)
[2020-11-21] MEDS: Atorvastatin Calcium 80 MG TABLET PO (09:26)
[2020-11-21] MEDS: Gabapentin 400 MG CAPSULE 800 MG PO ×3 (09:26→20:50)
[2020-11-21] MEDS: Aspirin Enteric Coated 81 MG TABLET.DR PO (09:26)
--- NOTE | 2020-11-21 11:50 | MHC.CM.PN ---
dc plan return ho me with [employer] and a [employer]
[2020-11-21 12:11] LABS: Glucose, Whole Blood 125 mg/dL (60-115)
--- NOTE | 2020-11-21 14:45 | HO.PM.IMPN ---
Subjective Subjective Date of Service: 11/21/20 Interval History: the patient was seen and evaluated this morning Laying in bed, feels comfortable but tired, fever improved cultures still negative Denies any fever, chills or shortness of breath No reported other overnight events. Systemic review: No fever, chills but report weakness No chest pain, palpitation No shortness of breath or coughing No abdominal pain, nausea or vomiting No urinary symptoms No any rash or wounds Physical Exam Vital Signs: Vital Signs: Last Vital Signs Temp 100.0 F 11/21/20 11:37 Pulse 69 11/21/20 11:37 Resp 20 11/21/20 11:37 BP 145/76 H 11/21/20 11:37 Pulse Ox 95 11/21/20 11:37 Body Mass Index 33.2 Const: Other: Constitutional : Alert, oriented, looks lethargic and tired Neck : Normal inspection, Supple Cardiovascular : RRR, S1 S2, no lower extremity edema Respiratory : fair bilateral air entry, no crackles, wheezes or rhonchi Gastrointestinal: soft, lax, Normal bowel sounds, Non tender Skin : Warm/Dry, No rash Neurological : Alert & oriented x3, No focal deficit Objective Data Current Medications Generic Name Dose Route Start Last Admin Trade Name Freq PRN Reason Stop Dose Admin Acetaminophen 650 mg 11/20/20 18:10 11/21/20 02:18 Acetaminophen 325 Mg Tablet PO 650 mg Q6H PRN Administration Pain, Mild (Pain Scale 1-3) Albuterol Sulfate 2.5 mg 11/20/20 18:10 Albuterol Sulfate (0.083%) 2.5 Mg/3 Ml Vial.Neb INHALE Q4H PRN Shortness Of Breath Or Wheezing Aspirin 81 mg 11/21/20 09:00 11/21/20 09:26 Aspirin Enteric Coated 81 Mg Tablet.Dr PO 81 mg DAILY [facility] Administration Atorvastatin Calcium 80 mg 11/21/20 09:00 11/21/20 09:26 Atorvastatin Calcium 80 Mg Tablet PO 80 mg DAILY [facility] Administration Enoxaparin Sodium 40 mg 11/20/20 19:00 11/20/20 19:10 Enoxaparin Sodium 40 Mg/0.4 Ml Syringe SUBCUT 40 mg Q24H [facility] Administration Gabapentin 800 mg 11/20/20 21:00 11/21/20 14:09 Gabapentin 400 Mg Capsule PO 800 mg TID [facility] Administration Vancomycin HCl 1,000 mg/ 270 mls @ 270 mls/hr 11/21/20 01:00 11/21/20 02:57 Sodium Chloride IV Infused Q12H [facility] Infusion Piperacillin Sod/Tazobactam 50 mls @ 100 mls/hr 11/20/20 19:00 11/21/20 14:09 Sod 3.375 gm/ Sodium Chloride IV 100 mls/hr Q6H [facility] Administration Insulin Glargine 60 unit 11/20/20 21:00 11/20/20 22:20 Insulin Glargine,Hum.Rec.Anlog 100 Unit/Ml 10 Ml Vial SUBCUT 60 unit BEDTIME [facility] Administration Insulin Human Lispro 0 unit 11/20/20 21:00 11/21/20 13:08 Insulin Lispro 100 Unit/Ml 3 Ml Vial SUBCUT Not Given QIDACHS [facility] Pharmacy Consult 1 each 11/20/20 09:14 Consult Rx Vancomycin Dosing MISCELLANE DAILY PRN Consult order Pharmacy Consult 1 each 11/20/20 09:15 Consult Rx Perform Med Rec MISCELLANE ONCE PRN Consult order Sodium Chloride 3 ml 11/21/20 00:00 11/21/20 09:35 0.9 % Sodium Chloride Flush 3 Ml Syringe IVFLUSH 3 ml QSHIFT [facility] Administration Tamsulosin HCl 0.4 mg 11/21/20 09:00 11/21/20 09:26 Tamsulosin Hcl 0.4 Mg Capsule PO 0.4 mg DAILY [facility] Administration Labs CBC & Chem 7: 11/21/20 06:33 11/21/20 06:33 Microbiology Microbiology Results: Microbiology 11/20/20 10:12 Blood - Venous Blood Culture - Preliminary No growth after 24 hours. 11/20/20 10:12 Blood - Venous Blood Culture - Preliminary No growth after 24 hours. Assessment and Plan (1) Acute metabolic encephalopathy: Status: Acute Assessment and Plan: 65 year old faroese speaking man admitted with septic shock with no clear source. Chest CTA showed a possible infiltrate, urinalysis negative. Will treat broadly for now. Severe sepsis Fever, tachycardia, tachypnea, hypotension, lactic acidosis at admission Sepsis focused exam done No clear source. could be viral still Blood cultures pending CT scan showing possible lung origin Pending ID eval Keep on broad spectrum ABx of Vanco and Zosyn Diabetes. Sliding scale. Hypertension with hypotension. Hold HCTZ, Losartan. HLD. Aspirin and statin DVT prophylaxis Lovenox.
[2020-11-21 16:11] LABS: Glucose, Whole Blood 154 mg/dL (60-115)
[2020-11-21] MEDS: Enoxaparin Sodium 40 MG/0.4 ML SYRINGE SUBCUT (18:30)
[2020-11-21] MEDS: Albuterol Sulfate (0.083%) 2.5 MG/3 ML VIAL.NEB INHALE (19:40)
[2020-11-21 19:58] LABS: Glucose, Whole Blood 264 mg/dL (60-115)
[2020-11-21] MEDS: Insulin Glargine,Hum.rec.anlog 100 UNIT/ML 10 ML VIAL 60 UNIT SUBCUT (20:50)
[2020-11-22] MEDS: Piperacillin Sodium/Tazobactam 3.375 GM in 0.9 % Sodium Chloride 50 ML IV ×4 (01:11→19:58)
[2020-11-22] MEDS: vancomycin HCL 1,000 MG in 0.9 % Sodium Chloride 250 ML 270 MG IV ×2 (01:39→10:24)
[2020-11-22 03:33] VITALS: BP 160/88; PULSE 56; RESP 20; TEMP 36.4; O2SAT 99
[2020-11-22 06:21] LABS: Hematocrit 40.1 % (42-52); Hemoglobin 13.6 g/dl (14.0-18.0); Mean Corpuscular HGB Conc 33.9 g/dl (31.0-36.0); Mean Corpuscular Hemoglobin 29.7 pg (27.0-33.0); Mean Corpuscular Volume 87.6 fL (80-98); Platelet Count 137 X10*3/uL (160-400); Red Blood Count 4.58 X10*6/uL (4.60-5.80); Red Cell Distribution Width 12.8 % (11.0-16.0); White Blood Count 10.4 X10*3/uL (4.8-10.8)
[2020-11-22 06:48] LABS: Alanine Aminotransferase 22 U/L (0-40); Alkaline Phosphatase 67 U/L (39-117); Anion Gap 10 (12-20); Aspartate Amino Transferase 32 U/L (5-37); Bilirubin Direct 0.4 mg/dL (0.0-0.5); Blood Urea Nitrogen 18 mg/dL (9-16); Calcium 7.8 mg/dL (8.4-10.2); Carbon Dioxide 30 mmol/L (22-29); Chloride 100 mmol/L (96-108); Creatinine Clr Calc Pharmacy 110.5; Estimated Glomerular Filt Rate > 60; Glucose Random 144 mg/dL (60-115); Potassium 2.9 mmol/L (3.3-5.1); Sodium 137 mmol/L (135-145); Total Protein 5.3 g/dL (6.5-8.0)
[2020-11-22 07:35] VITALS: BP 156/79; PULSE 60; RESP 18; TEMP 36.7; O2SAT 99
[2020-11-22 07:45] LABS: Glucose, Whole Blood 132 mg/dL (60-115)
--- NOTE | 2020-11-22 08:56 | P.CDIC_ITS ---
CDI Concurrent Query Service Date: 11/22/20 Documentation Clarification: Please clarify if you are treating a proba ble/suspected/likely or confirmed: Hypokalemia No Hypokalemia Provider Response: Provider Response: Other Other Diagnosis: Hypokalemia PLEASE DO NOT DELETE/MODIFY EXISTING CONTENT Additional information is needed in order to code to the highest accuracy and appropriate Severity of Illness (SOI). Please clarify the information noted below in your progress notes and discharge summary. Risk Factors/Clinical Indicators/Treatments 65 year old male admitted with Septic Shock, Severe Sepsis secondary to possible Pneumonia/Viral infection, Sepsis, Acute Metabolic Encephalopathy. Potassium 3.1 Received Klor-Con 40 mEq po once on 11/22/20. CDS: Marimar Gusman RN Contact Number: [phone] Please Review the information above and exercise your independent professional judgment in responding to the query. If you concur, pleas document in the PROGRESS NOTES and DISCHARGE SUMMARY. If you do not agree with the query, please document in the query above. THIS QUERY IS PART OF THE PERMANENT MEDICAL RECORD
[2020-11-22] MEDS: Atorvastatin Calcium 80 MG TABLET PO (09:01)
[2020-11-22] MEDS: Potassium Chloride ER 20 MEQ TAB.ER.PRT 40 MEQ PO (09:01)
[2020-11-22] MEDS: Gabapentin 400 MG CAPSULE 800 MG PO ×3 (09:01→20:08)
[2020-11-22] MEDS: Tamsulosin HCL 0.4 MG CAPSULE PO (09:01)
[2020-11-22] MEDS: Losartan Potassium 50 MG TABLET 100 MG PO (09:01)
[2020-11-22] MEDS: Aspirin Enteric Coated 81 MG TABLET.DR PO (09:01)
[2020-11-22] MEDS: 0.9 % Sodium Chloride Flush 3 ML SYRINGE IVFLUSH ×2 (09:02→16:00)
[2020-11-22 11:02] VITALS: BP 146/77; PULSE 57; RESP 18; TEMP 36.6; O2SAT 100
--- NOTE | 2020-11-22 11:09 | MHC.CM.PN ---
per multi dis rounds expected dc in 1 to 2 days dc plan remains home
--- NOTE | 2020-11-22 11:20 | HO.PM.IMPN ---
Subjective Subjective Date of Service: 11/22/20 Interval History: the patient was seen and evaluated this morning Laying in bed, feels comfortable but tired cultures still negative Has spikes of fever and chills overnight No reported other overnight events. Systemic review: Had fever, chills report weakness is improving No chest pain, palpitation No shortness of breath or coughing No abdominal pain, nausea or vomiting No urinary symptoms No any rash or wounds Physical Exam Vital Signs: Vital Signs: Last Vital Signs Temp 97.9 F 11/22/20 11:02 Pulse 57 11/22/20 11:02 Resp 18 11/22/20 11:02 BP 146/77 H 11/22/20 11:02 Pulse Ox 100 11/22/20 11:02 Body Mass Index 33.2 Const: Other: Constitutional : Alert, oriented, looks lethargic and tired Neck : Normal inspection, Supple Cardiovascular : RRR, S1 S2, no lower extremity edema Respiratory : fair bilateral air entry, no crackles, wheezes or rhonchi Gastrointestinal: soft, lax, Normal bowel sounds, Non tender Skin : Warm/Dry, No rash Neurological : Alert & oriented x3, No focal deficit Objective Data Current Medications Generic Name Dose Route Start Last Admin Trade Name Freq PRN Reason Stop Dose Admin Acetaminophen 650 mg 11/20/20 18:10 11/21/20 19:45 Acetaminophen 325 Mg Tablet PO 650 mg Q6H PRN Administration Pain, Mild (Pain Scale 1-3) Albuterol Sulfate 2.5 mg 11/20/20 18:10 11/21/20 19:40 Albuterol Sulfate (0.083%) 2.5 Mg/3 Ml Vial.Neb INHALE 2.5 mg Q4H PRN Administration Shortness Of Breath Or Wheezing Aspirin 81 mg 11/21/20 09:00 11/22/20 09:01 Aspirin Enteric Coated 81 Mg Tablet.Dr PO 81 mg DAILY DEXTER Administration Atorvastatin Calcium 80 mg 11/21/20 09:00 11/22/20 09:01 Atorvastatin Calcium 80 Mg Tablet PO 80 mg DAILY DEXTER Administration Enoxaparin Sodium 40 mg 11/20/20 19:00 11/21/20 18:30 Enoxaparin Sodium 40 Mg/0.4 Ml Syringe SUBCUT 40 mg Q24H DEXTER Administration Gabapentin 800 mg 11/20/20 21:00 11/22/20 09:01 Gabapentin 400 Mg Capsule PO 800 mg TID DEXTER Administration Piperacillin Sod/Tazobactam 50 mls @ 100 mls/hr 11/20/20 19:00 11/22/20 09:11 Sod 3.375 gm/ Sodium Chloride IV Infused Q6H [facility]EXTER Infusion Vancomycin HCl 1,000 mg/ 270 mls @ 270 mls/hr 11/22/20 09:00 11/22/20 10:24 Sodium Chloride IV 270 mls/hr Q8H DEX[facility] Administration Insulin Glargine 60 unit 11/20/20 21:00 11/21/20 20:50 Insulin Glargine,Hum.Rec.Anlog 100 Unit/Ml 10 Ml Vial SUBCUT 60 unit BEDTIME DEXTER Administration Insulin Human Lispro 0 unit 11/21/20 21:00 11/22/20 09:02 Insulin Lispro 100 Unit/Ml 3 Ml Vial SUBCUT Not Given QIDACHS [facility] Protocol Losartan Potassium 100 mg 11/22/20 09:00 11/22/20 09:01 Losartan Potassium 50 Mg Tablet PO 100 mg DAILY DEXTER Administration Protocol Pharmacy Consult 1 each 11/20/20 09:14 Consult Rx Vancomycin Dosing MISCELLANE DAILY PRN Consult order Pharmacy Consult 1 each 11/20/20 09:15 Consult Rx Perform Med Rec MISCELLANE ONCE PRN Consult order Sodium Chloride 3 ml 11/21/20 00:00 11/22/20 09:02 0.9 % Sodium Chloride Flush 3 Ml Syringe IVFLUSH 3 ml QSHIFT [facility] Administration Tamsulosin HCl 0.4 mg 11/21/20 09:00 11/22/20 09:01 Tamsulosin Hcl 0.4 Mg Capsule PO 0.4 mg DAILY DEXTER Administration Labs CBC & Chem 7: 11/22/20 05:21 11/22/20 05:21 Microbiology Microbiology Results: Microbiology 11/20/20 10:12 Blood - Venous Blood Culture - Preliminary No growth after 24 hours. 11/20/20 10:12 Blood - Venous Blood Culture - Preliminary No growth after 24 hours. Assessment and Plan (1) Acute metabolic encephalopathy: Status: Acute Assessment and Plan: 65 year old kazakh speaking man admitted with septic shock with no clear source. Chest CTA showed a possible infiltrate, urinalysis negative. Will treat broadly for now. Severe sepsis Fever, tachycardia, tachypnea, hypotension, lactic acidosis at admission Sepsis focused exam done No clear source. could be viral still Blood cultures pending CT scan showing possible lung origin Pending ID eval Discontinue vancomycin, continue Zosyn Start doxycycline Hypokalemia replacement given follow bmp Diabetes. Sliding scale. Hypertension with hypotension. Hold HCTZ, Losartan. HLD. Aspirin and statin DVT prophylaxis Lovenox.
[2020-11-22 11:42] LABS: Glucose, Whole Blood 186 mg/dL (60-115)
[2020-11-22] MEDS: Insulin Lispro 100 UNIT/ML 3 ML VIAL SUBCUT ×3 (11:58→20:08)
[2020-11-22] MEDS: Doxycycline Hyclate 100 MG in 0.9 % Sodium Chloride 250 ML 166.67 MG IV ×2 (11:58→23:10)
[2020-11-22 15:03] VITALS: BP 119/67; PULSE 60; RESP 20; TEMP 36.2; O2SAT 98
[2020-11-22 15:57] LABS: Glucose, Whole Blood 183 mg/dL (60-115)
[2020-11-22 17:55] LABS: Vancomycin Random 10.6 mcg/mL (15-20)
[2020-11-22 19:01] VITALS: BP 147/83; PULSE 62; RESP 20; TEMP 37.6; O2SAT 98
[2020-11-22 19:48] LABS: Glucose, Whole Blood 234 mg/dL (60-115)
[2020-11-22] MEDS: Enoxaparin Sodium 40 MG/0.4 ML SYRINGE SUBCUT (19:59)
[2020-11-22] MEDS: Insulin Glargine,Hum.rec.anlog 100 UNIT/ML 10 ML VIAL 60 UNIT SUBCUT (20:09)
[2020-11-22] MEDS: Acetaminophen 325 MG TABLET 650 MG PO (23:09)
[2020-11-22 23:23] VITALS: BP 150/80; PULSE 58; RESP 18; TEMP 36.5; O2SAT 99
[2020-11-23] VITALS (9 sets, daily range): BP systolic 120–144; BP diastolic 67–76; PULSE 51–63; RESP 17–18; TEMP 36.1–37; O2SAT 92–99
[2020-11-23] MEDS: 0.9 % Sodium Chloride Flush 3 ML SYRINGE IVFLUSH ×3 (00:54→17:15)
[2020-11-23] MEDS: Piperacillin Sodium/Tazobactam 3.375 GM in 0.9 % Sodium Chloride 50 ML IV ×4 (00:54→19:25)
[2020-11-23 05:04] LABS: Hematocrit 37.7 % (42-52); Mean Corpuscular HGB Conc 34.5 g/dl (31.0-36.0); Mean Corpuscular Hemoglobin 29.7 pg (27.0-33.0); Mean Corpuscular Volume 86.3 fL (80-98); Mean Platelet Volume 10.3 fL (9.4-12.4); Platelet Count 162 X10*3/uL (160-400); Red Blood Count 4.37 X10*6/uL (4.60-5.80); Red Cell Distribution Width 12.6 % (11.0-16.0); White Blood Count 7.6 X10*3/uL (4.8-10.8)
[2020-11-23 05:26] LABS: Anion Gap 11 (12-20); Blood Urea Nitrogen 15 mg/dL (9-16); Calcium 7.8 mg/dL (8.4-10.2); Carbon Dioxide 28 mmol/L (22-29); Chloride 102 mmol/L (96-108); Creatinine Clr Calc Pharmacy 126.8; Estimated Glomerular Filt Rate > 60; Glucose Random 170 mg/dL (60-115); Potassium 3.2 mmol/L (3.3-5.1); Sodium 138 mmol/L (135-145)
[2020-11-23 08:20] LABS: Glucose, Whole Blood 148 mg/dL (60-115)
[2020-11-23] MEDS: Aspirin Enteric Coated 81 MG TABLET.DR PO (09:20)
[2020-11-23] MEDS: Tamsulosin HCL 0.4 MG CAPSULE PO (09:20)
[2020-11-23] MEDS: Losartan Potassium 50 MG TABLET 100 MG PO (09:20)
[2020-11-23] MEDS: Gabapentin 400 MG CAPSULE 800 MG PO ×3 (09:20→21:02)
[2020-11-23] MEDS: Atorvastatin Calcium 80 MG TABLET PO (09:20)
[2020-11-23] MEDS: Albuterol Sulfate (0.083%) 2.5 MG/3 ML VIAL.NEB INHALE (09:44)
--- NOTE | 2020-11-23 11:07 | HO.PM.IMPN ---
Subjective Subjective Date of Service: 11/23/20 Interval History: the patient was seen and evaluated this morning Laying in bed, feels comfortable but still requiring 2 L of oxygen, to wean down Reporting wheezes cultures still negative Has spikes of fever and chills overnight No reported other overnight events. Systemic review: Had fever, chills report weakness is improving No chest pain, palpitation No shortness of breath or coughing but has audible wheezes No abdominal pain, nausea or vomiting No urinary symptoms No any rash or wounds Physical Exam Vital Signs: Vital Signs: Last Vital Signs Temp 98.6 F 11/23/20 07:29 Pulse 53 11/23/20 09:44 Resp 18 11/23/20 07:29 BP 135/76 11/23/20 09:20 Pulse Ox 99 11/23/20 07:29 Body Mass Index 33.2 Const: Other: Constitutional : Alert, oriented, looks lethargic and tired Neck : Normal inspection, Supple Cardiovascular : RRR, S1 S2, no lower extremity edema Respiratory : fair bilateral air entry, no crackles, wheezes or rhonchi Gastrointestinal: soft, lax, Normal bowel sounds, Non tender Skin : Warm/Dry, No rash Neurological : Alert & oriented x3, No focal deficit Objective Data Current Medications Generic Name Dose Route Start Last Admin Trade Name Freq PRN Reason Stop Dose Admin Acetaminophen 650 mg 11/20/20 18:10 11/22/20 23:09 Acetaminophen 325 Mg Tablet PO 650 mg Q6H PRN Administration Pain, Mild (Pain Scale 1-3) Albuterol Sulfate 2.5 mg 11/20/20 18:10 11/23/20 09:44 Albuterol Sulfate (0.083%) 2.5 Mg/3 Ml Vial.Neb INHALE 2.5 mg Q4H PRN Administration Shortness Of Breath Or Wheezing Aspirin 81 mg 11/21/20 09:00 11/23/20 09:20 Aspirin Enteric Coated 81 Mg Tablet.Dr PO 81 mg DAILY DEXTER Administration Atorvastatin Calcium 80 mg 11/21/20 09:00 11/23/20 09:20 Atorvastatin Calcium 80 Mg Tablet PO 80 mg DAILY DEXTER Administration Enoxaparin Sodium 40 mg 11/20/20 19:00 11/22/20 19:59 Enoxaparin Sodium 40 Mg/0.4 Ml Syringe SUBCUT 40 mg Q24H DEXTER Administration Gabapentin 800 mg 11/20/20 21:00 11/23/20 09:20 Gabapentin 400 Mg Capsule PO 800 mg TID DEXTER Administration Piperacillin Sod/Tazobactam 50 mls @ 100 mls/hr 11/20/20 19:00 11/23/20 07:41 Sod 3.375 gm/ Sodium Chloride IV Infused Q6H [facility] Infusion Doxycycline Hyclate 100 mg/ 250 mls @ 166.67 mls/hr 11/22/20 11:30 11/23/20 00:55 Sodium Chloride IV Infused Q12H [facility] Infusion Insulin Glargine 60 unit 11/20/20 21:00 11/22/20 20:09 Insulin Glargine,Hum.Rec.Anlog 100 Unit/Ml 10 Ml Vial SUBCUT 60 unit BEDTIME DEXTER Administration Insulin Human Lispro 0 unit 11/21/20 21:00 11/23/20 09:17 Insulin Lispro 100 Unit/Ml 3 Ml Vial SUBCUT Not Given QIDACHS COUNTS INCLUDE [facility] BEDS AT [facility] Protocol Losartan Potassium 100 mg 11/22/20 09:00 11/23/20 09:20 Losartan Potassium 50 Mg Tablet PO 100 mg DAILY DEXTER Administration Protocol Pharmacy Consult 1 each 11/20/20 09:14 Consult Rx Vancomycin Dosing MISCELLANE DAILY PRN Consult order Pharmacy Consult 1 each 11/20/20 09:15 Consult Rx Perform Med Rec MISCELLANE ONCE PRN Consult order Sodium Chloride 3 ml 11/21/20 00:00 11/23/20 09:26 0.9 % Sodium Chloride Flush 3 Ml Syringe IVFLUSH 3 ml QSHIFT DEXTER Administration Tamsulosin HCl 0.4 mg 11/21/20 09:00 11/23/20 09:20 Tamsulosin Hcl 0.4 Mg Capsule PO 0.4 mg DAILY DEXTER Administration Labs CBC & Chem 7: 11/23/20 03:56 11/23/20 03:56 Microbiology Microbiology Results: Microbiology 11/20/20 10:12 Blood - Venous Blood Culture - Preliminary No growth after 48 hours. 11/20/20 10:12 Blood - Venous Blood Culture - Preliminary No growth after 48 hours. Assessment and Plan (1) Acute metabolic encephalopathy: Status: Acute Assessment and Plan: 65 year old faroese speaking man admitted with septic shock with no clear source. Chest CTA showed a possible infiltrate, urinalysis negative. Will treat broadly for now. Severe sepsis, resolved Pneumonia No clear source other than the lung. could be viral still Blood cultures negative CT scan showing possible lung origin Pending ID eval Continue Zosyn and doxycycline for now Change to oral doxycycline and Ceftin at time of discharge Reactive airway disease denies history of smoking but had asthma before, not a medications Start methylprednisone id Start duo nebs ATC Hypokalemia replacement given follow bmp Diabetes. Sliding scale. Hypertension Hold HCTZ Restart Losartan. HLD. Aspirin and statin DVT prophylaxis Lovenox.
[2020-11-23 11:37] LABS: Glucose, Whole Blood 226 mg/dL (60-115)
[2020-11-23] MEDS: Potassium Chloride ER 20 MEQ TAB.ER.PRT 40 MEQ PO (12:27)
[2020-11-23] MEDS: Insulin Lispro 100 UNIT/ML 3 ML VIAL SUBCUT ×3 (12:30→21:03)
[2020-11-23] MEDS: Doxycycline Hyclate 100 MG in 0.9 % Sodium Chloride 250 ML 166.67 MG IV ×2 (13:09→22:38)
[2020-11-23] MEDS: Albuterol/Iprat 2.5/0.5MG 3 ML AMPUL.NEB INHALE ×2 (15:23→20:34)
[2020-11-23 16:14] LABS: Glucose, Whole Blood 225 mg/dL (60-115)
[2020-11-23] MEDS: Enoxaparin Sodium 40 MG/0.4 ML SYRINGE SUBCUT (19:25)
[2020-11-23 20:14] LABS: Glucose, Whole Blood 278 mg/dL (60-115)
[2020-11-23] MEDS: Insulin Glargine,Hum.rec.anlog 100 UNIT/ML 10 ML VIAL 60 UNIT SUBCUT (21:03)
[2020-11-24] VITALS (11 sets, daily range): BP systolic 121–161; BP diastolic 74–82; PULSE 50–64; RESP 13–18; TEMP 36.1–36.7; O2SAT 95–98
[2020-11-24] MEDS: 0.9 % Sodium Chloride Flush 3 ML SYRINGE IVFLUSH ×3 (00:32→16:15)
[2020-11-24] MEDS: Piperacillin Sodium/Tazobactam 3.375 GM in 0.9 % Sodium Chloride 50 ML IV ×3 (00:33→12:26)
[2020-11-24 07:39] LABS: Anion Gap 11 (12-20); Blood Urea Nitrogen 15 mg/dL (9-16); Calcium 8.1 mg/dL (8.4-10.2); Carbon Dioxide 28 mmol/L (22-29); Chloride 102 mmol/L (96-108); Creatinine Clr Calc Pharmacy 130.6; Estimated Glomerular Filt Rate > 60; Glucose Random 159 mg/dL (60-115); Potassium 3.8 mmol/L (3.3-5.1); Sodium 137 mmol/L (135-145)
[2020-11-24 08:00] LABS: Glucose, Whole Blood 141 mg/dL (60-115)
[2020-11-24] MEDS: Gabapentin 400 MG CAPSULE 800 MG PO ×3 (08:18→20:49)
[2020-11-24] MEDS: Tamsulosin HCL 0.4 MG CAPSULE PO (08:18)
[2020-11-24] MEDS: Aspirin Enteric Coated 81 MG TABLET.DR PO (08:18)
[2020-11-24] MEDS: predniSONE 20 MG TABLET 40 MG PO (08:18)
[2020-11-24] MEDS: Atorvastatin Calcium 80 MG TABLET PO (08:18)
[2020-11-24] MEDS: Losartan Potassium 50 MG TABLET 100 MG PO (08:18)
[2020-11-24] MEDS: Doxycycline Hyclate 100 MG in 0.9 % Sodium Chloride 250 ML 166.67 MG IV (10:57)
[2020-11-24 12:06] LABS: Glucose, Whole Blood 249 mg/dL (60-115)
[2020-11-24] MEDS: Insulin Lispro 100 UNIT/ML 3 ML VIAL SUBCUT ×3 (12:11→20:48)
[2020-11-24] MEDS: Albuterol/Iprat 2.5/0.5MG 3 ML AMPUL.NEB INHALE ×3 (12:25→20:15)
--- NOTE | 2020-11-24 13:14 | HO.PM.IMPN ---
Subjective Subjective Date of Service: 11/24/20 Interval History: the patient was seen and evaluated this morning Laying in bed, looks more alert and oriented today Weaned of oxygen cultures still negative Has spikes of fever and chills overnight No reported other overnight events. Systemic review: Had fever, chills report weakness is improving No chest pain, palpitation No shortness of breath or coughing but has audible wheezes No abdominal pain, nausea or vomiting No urinary symptoms No any rash or wounds Physical Exam Vital Signs: Vital Signs: Last Vital Signs Temp 96.9 F 11/24/20 12:00 Pulse 50 11/24/20 12:28 Resp 18 11/24/20 12:00 BP 153/74 H 11/24/20 12:00 Pulse Ox 95 11/24/20 12:00 Body Mass Index 33.2 Const: Other: Constitutional : Alert, oriented, looks lethargic and tired Neck : Normal inspection, Supple Cardiovascular : RRR, S1 S2, no lower extremity edema Respiratory : fair bilateral air entry, no crackles, wheezes or rhonchi Gastrointestinal: soft, lax, Normal bowel sounds, Non tender Skin : Warm/Dry, No rash Neurological : Alert & oriented x3, No focal deficit Objective Data Current Medications Generic Name Dose Route Start Last Admin Trade Name Freq PRN Reason Stop Dose Admin Acetaminophen 650 mg 11/20/20 18:10 11/22/20 23:09 Acetaminophen 325 Mg Tablet PO 650 mg Q6H PRN Administration Pain, Mild (Pain Scale 1-3) Albuterol Sulfate 2.5 mg 11/20/20 18:10 11/23/20 09:44 Albuterol Sulfate (0.083%) 2.5 Mg/3 Ml Vial.Neb INHALE 2.5 mg Q4H PRN Administration Shortness Of Breath Or Wheezing Albuterol/Ipratropium 3 ml 11/23/20 12:00 11/24/20 12:25 Albuterol/Iprat 2.5/0.5mg 3 Ml Ampul.Neb INHALE 3 ml RQ4H WHILE AWAKE DEXTER Administration Aspirin 81 mg 11/21/20 09:00 11/24/20 08:18 Aspirin Enteric Coated 81 Mg Tablet.Dr PO 81 mg DAILY DEXTER Administration Atorvastatin Calcium 80 mg 11/21/20 09:00 11/24/20 08:18 Atorvastatin Calcium 80 Mg Tablet PO 80 mg DAILY DEXTER Administration Enoxaparin Sodium 40 mg 11/20/20 19:00 11/23/20 19:25 Enoxaparin Sodium 40 Mg/0.4 Ml Syringe SUBCUT 40 mg Q24H DEXTER Administration Gabapentin 800 mg 11/20/20 21:00 11/24/20 08:18 Gabapentin 400 Mg Capsule PO 800 mg TID DEXTER Administration Piperacillin Sod/Tazobactam 50 mls @ 100 mls/hr 11/20/20 19:00 11/24/20 13:01 Sod 3.375 gm/ Sodium Chloride IV Infused Q6H [facility]EXTER Infusion Doxycycline Hyclate 100 mg/ 250 mls @ 166.67 mls/hr 11/22/20 11:30 11/24/20 12:27 Sodium Chloride IV Infused Q12H DEXTER Infusion Insulin Glargine 60 unit 11/20/20 21:00 11/23/20 21:03 Insulin Glargine,Hum.Rec.Anlog 100 Unit/Ml 10 Ml Vial SUBCUT 60 unit BEDTIME DEXTER Administration Insulin Human Lispro 0 unit 11/21/20 21:00 11/24/20 12:11 Insulin Lispro 100 Unit/Ml 3 Ml Vial SUBCUT 4 unit QIDACHS [facility] Administration Protocol Losartan Potassium 100 mg 11/22/20 09:00 11/24/20 08:18 Losartan Potassium 50 Mg Tablet PO 100 mg DAILY DEXTER Administration Protocol Pharmacy Consult 1 each 11/20/20 09:14 Consult Rx Vancomycin Dosing MISCELLANE DAILY PRN Consult order Pharmacy Consult 1 each 11/20/20 09:15 Consult Rx Perform Med Rec MISCELLANE ONCE PRN Consult order Prednisone 40 mg 11/24/20 09:00 11/24/20 08:18 Prednisone 20 Mg Tablet PO 40 mg DAILY DEXTER Administration Sodium Chloride 3 ml 11/21/20 00:00 11/24/20 08:18 0.9 % Sodium Chloride Flush 3 Ml Syringe IVFLUSH 3 ml QSHIFT [facility] Administration Tamsulosin HCl 0.4 mg 11/21/20 09:00 11/24/20 08:18 Tamsulosin Hcl 0.4 Mg Capsule PO 0.4 mg DAILY DEXTER Administration Labs CBC & Chem 7: 11/23/20 03:56 11/24/20 05:45 Microbiology Microbiology Results: Microbiology 11/20/20 10:12 Blood - Venous Blood Culture - Preliminary No growth after 48 hours. 11/20/20 10:12 Blood - Venous Blood Culture - Preliminary No growth after 48 hours. Assessment and Plan (1) Acute metabolic encephalopathy: Status: Acute Assessment and Plan: 65 year old sinhala speaking man admitted with septic shock with no clear source. Chest CTA showed a possible infiltrate, urinalysis negative. Will treat broadly for now. Severe sepsis, resolved Pneumonia No clear source other than the lung. could be viral still Blood cultures negative CT scan showing possible lung origin Pending ID eval Change antibiotic to doxycycline and Ceftin Change to oral doxycycline and Ceftin at time of discharge Reactive airway disease denies history of smoking but had asthma before, not a medications Continue methylprednisone id Continue duo nebs ATC Hypokalemia replacement given follow bmp Diabetes. Sliding scale. Hypertension Hold HCTZ Restart Losartan. HLD. Aspirin and statin DVT prophylaxis Lovenox.
--- NOTE | 2020-11-24 13:58 | MHC.CM.PN ---
CM met with pt with the assistance of [facility] per diem interpreter. Pt reports he goes to rehab in [place]. Her reports the nurse brings him and he stays there. He reports his nurse is from [place] but he is unable to provide any further details. Pt reports his HCP is Luis Tubbs but he is unable to provide a phone number. He took CM contact info and says he will give it to him when he calls. LEXUS did speak to Chanell ([phone]) at [facility] who reports the pt has 20.25 daytime and 14 night time [employer] hours weekly. She reports if the pt goes home at [place], they will complete a post DC assessment to determine if he needs more services at this time. CM will inform he once disposition is determined.
--- NOTE | 2020-11-24 15:25 | MHC.CM.PN ---
Addendum entered by Sola Valencia 11/25/20 08:30: LEXUS received a return call from Chanell at [facility]. She reported this pt is also involved with [facility], therefore, [facility] will not be able to manage his PT needs. Chanell authorized a referral to [facility] for home PT. Referral made. Original Note: Pt provided a phone number for Jolynn ([phone]) and indicated this was a family member. CM called Jolynn who reports she is the fiance of pts HCP/nephew Luis Molinaueroa. She reports the pt lives with them and Luis is the pts care trainer. She reports they would want the pt to come home at [place]. She states she just spoke to the pt and he wants to go home. She reports this is the longest the pt has been away from them since he came into their care. CM informed Jolynn the only person listed on pts contact list is Angel. She reports that was the pts father who . LEXUS will send updated contact info to [facility] registration. Pt will DC home tomorrow where he resides with his caregiver, Luis ([phone]) Jolynn reports she will also be available if Luis is unable to be reached. Luis or Jolynn will transport pt at [place] LEXUS left a VM for covering [facility] liaison, Chanell ([phone]) informing her of pending DC and need for home PT services to be provided
[2020-11-24 16:59] LABS: Glucose, Whole Blood 277 mg/dL (60-115)
[2020-11-24] MEDS: Enoxaparin Sodium 40 MG/0.4 ML SYRINGE SUBCUT (17:49)
[2020-11-24 19:41] LABS: Glucose, Whole Blood 272 mg/dL (60-115)
[2020-11-24] MEDS: Insulin Glargine,Hum.rec.anlog 100 UNIT/ML 10 ML VIAL 60 UNIT SUBCUT (20:47)
[2020-11-25] MEDS: 0.9 % Sodium Chloride Flush 3 ML SYRINGE IVFLUSH ×2 (00:11→08:31)
[2020-11-25 04:00] VITALS: BP 156/78; PULSE 55; RESP 18; TEMP 36.7; O2SAT 97
[2020-11-25 07:38] LABS: Glucose, Whole Blood 118 mg/dL (60-115)
[2020-11-25] MEDS: Albuterol/Iprat 2.5/0.5MG 3 ML AMPUL.NEB INHALE ×2 (07:40→10:56)
[2020-11-25 07:42] VITALS: O2SAT 95
[2020-11-25 07:53] VITALS: BP 123/71; PULSE 51; RESP 20; TEMP 36.4; O2SAT 99
[2020-11-25 08:29] VITALS: BP 123/71; PULSE 51
[2020-11-25] MEDS: Losartan Potassium 50 MG TABLET 100 MG PO (08:29)
[2020-11-25] MEDS: Tamsulosin HCL 0.4 MG CAPSULE PO (08:30)
[2020-11-25] MEDS: predniSONE 20 MG TABLET 40 MG PO (08:30)
[2020-11-25] MEDS: Gabapentin 400 MG CAPSULE 800 MG PO (08:30)
[2020-11-25] MEDS: Atorvastatin Calcium 80 MG TABLET PO (08:30)
[2020-11-25] MEDS: Aspirin Enteric Coated 81 MG TABLET.DR PO (08:30)
--- NOTE | 2020-11-25 10:16 | MHC.CM.PN ---
Addendum entered by Sola Valencia 11/26/20 08:59: CM received a message from [facility] liaison indicating they would be unable to provide the physical therapy services for this pt. Referral sent to [facility]. They accepted referral and pts DC summary and F2F were sent to them via [employer] Addendum entered by Sola Valencia 11/25/20 11:05: CM spoke to pts nephewAlex ([phone]) who reports he will be picking up the pt. Alex also asks that the pts contact information be updated to include him and his daughter, Mariella Tubbs ([phone]). Task will be sent to registration. Pt will be picked up around 1130. Alex will call when he arrives for pt to be brought down. Original Note: PT WILL DC HOME TODAY WITH RESUMPTION OF [facility] [facility]. PTS HOME PT WAS AUTHORIZED BY [facility] ON 11/24/20. PTS FAMILY WILL PROVIDE TRANSPORTATION AT DISCHARGE. PTS [facility]LEX SHOULD BE CONTACTED WHEN PT IS READY TO DC ([phone])
--- NOTE | 2020-11-25 10:39 | W.MHC.F2F ---
Service Date Service Date: 11/25/20 Encounter Date of encounter: 11/25/20 Reasons for Services Reason for mcfp: medication treatment Reason for physical therapy: home safety and mobility and therapeutic exercises Homebound: Leaving the home is medically contraindicated at this time without the asist of a device and/or another person due th the listed conditions above and below. Certification: Based on the above findings, I certify that this patient is confined to the home and needs intermittent mcfp care, physical therapy and/or speech therapy, or continues to need occupational therapy. The patient is under my care, and I have initiated the establishment of the plan of care. The patient will be followed by a physician who will periodically review the plan of care.
[2020-11-25 10:57] VITALS: PULSE 89; O2SAT 95
[2020-11-25 11:19] LABS: Glucose, Whole Blood 245 mg/dL (60-115)
--- NOTE | 2020-11-25 11:49 | PM.DS ---
DS: Providers Provider Date of Service: 11/25/20 Date of admission: 11/20/20 22:29 Primary care physician: [facility] Consults: 11/21/20 13:05 Consult to Infectious Diseases Routine Consulting Provider: Lesly Comer Reason for consultation: Evaluation for severe sepsis. DS: Diagnosis Discharge Diagnosis (1) Acute metabolic encephalopathy: Status: Acute (2) Severe sepsis: Status: Acute (3) Pneumonia: Status: Acute DS: Medications Discharge Medications Home Medications: Home Medications Medication Instructions Recorded Confirmed Lantus U-100 Insulin 60 unit SUBCUT BEDTIME 11/20/20 11/20/20 albuterol sulfate 2.5 mg INHALATION Q4H PRN 11/20/20 11/20/20 aspirin 81 mg PO DAILY 11/20/20 11/20/20 atorvastatin 80 mg PO DAILY 11/20/20 11/20/20 gabapentin 800 mg PO TID 11/20/20 11/20/20 hydrochlorothiazide 25 mg PO DAILY 11/20/20 11/20/20 losartan 100 mg PO DAILY 11/20/20 11/20/20 prednisone See Rx Instructions .ROUTE .COMPLEX 11/20/20 11/20/20 tamsulosin 0.4 mg PO DAILY 11/20/20 11/20/20 Previous Rx's Medication Instructions Recorded cefuroxime axetil 500 mg PO Q12H #6 tab 11/25/20 doxycycline hyclate 100 mg PO Q12H #6 tab 11/25/20 fluticasone propion-salmeterol 1 inh INHALATION BID #1 ea 11/25/20 [AirDuo RespiClick] DS: Summary Hospital Course Hospital Course: Admission note HPI 65 year old man presenting with fever, shortness of breath and cough. He reported a cough that started last night. Attempted to reach patients bruno Ortiz ([phone]) but unable to reach him. He has fever, tachycardia, leukocytosis, lactic acidosis. He is lethargic. Apparently he rolled out of bed and fell on the floor. He had some dizziness at home. No LOC. He had multiple imaging studies in the ER head CT, chest x-ray, abdominal CT were all negative for any acute abnormalities. Chest CTA showed bronchial wall thickening with clustered nodules in the lateral periphery of the right upper lobe suggesting underlying infection versus inflammatory process. No focal consolidation seen. Negative COVID-19 PCR. Blood pressures initially systolic clear in the 70s. Improved somewhat with IV fluids. He was noted to have an elevated white blood cell count of 14.8, potassium 3.1, lactic acid 3.2, total CK 515, troponin 79.6 with repeat of 79.8. He was started on broad-spectrum treatment including vancomycin and Zosyn. He received 4 L of IV fluids. He also received potassium and Tylenol. case discussed with ED attending. Will admit patient wants blood pressure maps are above 65. Hospital course The patient was admitted to the hospital for evaluation of severe sepsis at time of admission. CT scan of the chest was concerning for possible lung origin for infection. Respiratory panel for viruses was Hold negative. Blood cultures remain negative during the hospital stay. She was treated with IV antibiotics of vancomycin and Zosyn which was decreased to doxycycline and Ceftin during the hospital stay. The patient as well afebrile since admission. He was noted to have bilateral wheezes with history of asthma versus COPD. Treated with nebulizers and oxygen with good response. Oxygen wean down to room air. To be discharged on doxycycline and Ceftin To start air do inhaler twice Daily Time Spent with Patient Time attestation: Total time spent providing and/or coordinating discharge services: Discharge coordination time: Greater than 30 minutes Physical Exam Vital Signs: Vital Signs: Last Vital Signs Temp 97.5 F 11/25/20 07:53 Pulse 89 11/25/20 10:57 Resp 20 11/25/20 07:53 BP 123/71 11/25/20 08:29 Pulse Ox 99 11/25/20 07:53 Body Mass Index 33.2 Const: Other: Constitutional : Alert, oriented, looks lethargic and tired Neck : Normal inspection, Supple Cardiovascular : RRR, S1 S2, no lower extremity edema Respiratory : fair bilateral air entry, no crackles, wheezes or rhonchi Gastrointestinal: soft, lax, Normal bowel sounds, Non tender Skin : Warm/Dry, No rash Neurological : Alert & oriented x3, No focal deficit DS: Data Data Completed and Pending Labs on day of discharge: Laboratory Results - last 24 hr 11/24/20 11/24/20 11/24/20 11:50 16:23 19:36 POC Glucose 249 H 277 H 272 H 11/25/20 11/25/20 07:18 11:00 POC Glucose 118 H 245 H Preliminary micro results at discharge 11/20/20 10:12 Blood Culture - Preliminary Blood - Venous No growth after 48 hours. 11/20/20 10:12 Blood Culture - Preliminary Blood - Venous No growth after 48 hours. Discharge Plan Discharge Patient Disposition: Home Health Service Referrals: [employer] [Other] [facility] [Outside] [facility] [Primary Care Provider] - Discharge Medications: New cefuroxime axetil 500 mg Tablet 500 mg PO Q12H Qty: 6 RF: 0 doxycycline hyclate 100 mg Tablet 100 mg PO Q12H Qty: 6 RF: 0 fluticasone propion-salmeterol [AirDuo RespiClick] 55-14 mcg/actuation aerosol powdr breath activated 1 inh inhalation BID Qty: 1 RF: 0 Continued atorvastatin 80 mg tablet 80 mg PO DAILY RF: 0 Lantus U-100 Insulin 100 unit/mL solution 60 unit subcut BEDTIME RF: 0 albuterol sulfate 2.5 mg /3 mL (0.083 %) solution for nebulization 2.5 mg inhalation Q4H PRN (Reason: Shortness Of Breath Or Wheezing) RF: 0 prednisone 20 mg tablet See Rx Instructions .ROUTE .COMPLEX RF: 0 aspirin 81 mg tablet,delayed release (DR/EC) 81 mg PO DAILY RF: 0 tamsulosin 0.4 mg capsule 0.4 mg PO DAILY RF: 0 gabapentin 800 mg tablet 800 mg PO TID RF: 0 hydrochlorothiazide 25 mg tablet 25 mg PO DAILY RF: 0 losartan 100 mg tablet 100 mg PO DAILY RF: 0 Discharge Orders: Discharge Order (Routine); Ordered 11/25/20 Ordered By: Bill Alcocer Diet: advance to usual diet Activity on Discharge: As tolerated Stand Alone Forms: Patient Portal Discharge page Care Plan Goals: Read below Health Concerns: Read below Plan of Treatment: You were admitted to the hospital for evaluation of fever and difficulty breathing. Images were concerning for possible pneumonia and you were treated with IV antibiotics with good response over the course of hospital stay. You were weaned off oxygen. You were noticed to have bilateral wheezes as a result of COPD exacerbation. Treated with nebulizer with good response. Continue antibiotics as prescribed To start daily inhaler To follow up with PCP next week
== END 2020-11-25 12:15 | disposition home health service (06) | DRG 871 ==
LOC: HO.ED 16:11 → HO.EDOVER 22:37 → HO.IMC 11-21 07:16
PROVIDERS: Nurse Practitioner Acute Care; Physician Assistant; Admitting Provider Internal Medicine; Emergency Provider Emergency Medicine; Visit Provider Student in an Organized Health Care Education/Training Program
DX: A41.9 Sepsis, unspecified organism (principal); R65.21 Severe sepsis with septic shock; G93.41 Metabolic encephalopathy; J18.9 Pneumonia, unspecified organism; E78.5 Hyperlipidemia, unspecified; I10 Essential (primary) hypertension; E11.9 Type 2 diabetes mellitus without complications; E87.6 Hypokalemia; Z20.822 Contact with and (suspected) exposure to COVID-19; Z79.4 Long term (current) use of insulin; Z79.52 Long term (current) use of systemic steroids; Z79.82 Long term (current) use of aspirin; Z79.899 Other long term (current) drug therapy
CPT/HCPCS: 0241U; 36415; 70450; 71045; 71275; 74177; 80048; 80076; 80202; 81001; 82550; 82947; 83605; 83735; 83880; 84145; 84484; 85025; 85027; 86140; 87040; 87633; 93005; 94640; 96361; 96365; 96366; 96367; 97162; 99285; 99291; J1650; J1885; J2543; J2920; J3370